=== PATIENT | male | born 1970 | race Caucasian/White ===

== ENCOUNTER 2021-07-20 23:08 | Emergency (ER) | payer OTHER, SELFPAY ==
[2021-07-20 23:12] VITALS: BP 141/96; PULSE 64; RESP 18; TEMP 36.5; O2SAT 98
--- NOTE | 2021-07-20 23:33 | ED.GENADUL_ITS ---
Discharge Plan Disposition Patient Disposition: HOME Condition: Stable Discharge Details Clinical Impression: Hives Primary Care Provider: None,None ED Provider: Jacky Cooney Home Meds and New Rx's Prescriptions: New prednisone 20 mg tablet See Rx Instructions .ROUTE .COMPLEX Qty: 13 RF: 0 Continued cephalexin 500 mg capsule 500 mg PO QID Qty: 28 RF: 0 Discontinued prednisone 20 mg tablet 40 mg PO DAILY Qty: 10 RF: 0 Discharge Instructions Instructions: Urticaria (ED) Additional Instructions: you can use benadryl as needed for itching follow dosing instructions on packaging if you develop difficulty breathing, chest pain, abdomen pain, nausea/vomit or feel more ill return to the emergency department Medical Decision Making 50 yo male who was stung by yellow jackets and developed hives and started p rednisone and cephalexin by urgent care 5 days ago, comes in after he had been doing well and then developed recurrent itching hives on lower obliques. He denies gi or respiratory symptoms. He took benadryl tonight and his rash improved though still has very faint hives on lower obliques, not warm to touch or tender. He is speaking in full sentences on exam in no distress and appears well. Suspect continued allergy response, no indication of anaphylaxis. Will have him start steroids again this time with a taper and continue prn benadryl. Advised to return for new or worsening symptoms Differential Diagnosis Differential Diagnosis: hives, allergic reaction HPI General Mode of arrival: ambulatory . Date/Time Provider Initiated Documentation: 07/20/21 23:17 . Limitations to Documentation: no limitations . Information obtained by: patient . History of Present Illness 50 year old M presents to the emergency department with the chief complaint of rash, described as moderate, Patient started experiencing this day(s) (5) and it has been constant. No exacerbating factors reported . Patient notes no other symptoms.. Patient did receive the following treatments prior to arrival, other (benadryl) Related Data Home Medications Medication Instructions Recorded Confirmed cephalexin 500 mg capsule 500 mg PO QID #28 cap 07/15/21 07/15/21 prednisone See Rx Instructions .ROUTE 07/20/21 .COMPLEX #13 tab Previous Rx's Medication Instructions Recorded cephalexin 500 mg capsule 500 mg PO QID #28 cap 07/15/21 prednisone See Rx Instructions .ROUTE 07/20/21 .COMPLEX #13 tab Allergies Allergy/AdvReac Type Severity Reaction Status Date / Time morphine AdvReac Intermediate Skin Rash Verified 07/15/21 12:27 environmental Allergy Mild Uncoded 07/15/21 12:27 General Stated Complaint: RashLesion NISA: 4 Review of Systems All systems reviewed & are unremarkable except as noted in HPI and below Constitutional Constitutional: Denies chills, Denies fever(s) and Denies weakness Cardiovascular Cardiovascular: Denies chest pain and Denies dyspnea Respiratory Respiratory: Denies cough and Denies dyspnea Gastrointestinal Gastrointestinal: Denies abdominal pain, Denies nausea and Denies vomiting Musculoskeletal Musculoskeletal: Denies joint swelling Neurologic Neurologic: Denies weakness Psychiatric Psychiatric: Denies depression PFSH Social History Smoking/Tobacco Use Status: Never Smoking risk assessment performed?: Yes Alcohol Intake: current Alcohol Intake frequency: a few times a month Drug use: Occasionally Substance use type: marijuana Do you feel safe at home: Yes Do you feel safe in your relationship?: Yes Exam Const General: no acute distress Orientation: alert HENMT Head: normal to inspection Ears: external ears normal General nose exam: external nose normal Mouth: moist mucous membranes Eyes General: appearance normal, both eyes and all related structures Neck Neck: normal visual inspection Resp Effort & Inspection: normal respiratory effort and able to speak in complete sentences Cardio Rate: regular rate Skin General skin exam: elasticity normal Neuro General: patient alert and patient oriented x3 Extrem General: normal to inspection Psych Mental Status: mental status grossly normal Course Vital Signs Vital signs: Vital Signs Temperature 36.5 C 07/20/21 23:12 Pulse 64 07/20/21 23:12 Respiratory Rate 18 07/20/21 23:12 Blood Pressure 141/96 H 07/20/21 23:12 Pulse Oximetry 98 07/20/21 23:12 Temperature 36.5 C 07/20/21 23:12 Temperature Source Temporal Artery Scan 07/20/21 23:12 Pulse 64 07/20/21 23:12 Respiratory Rate 18 07/20/21 23:12 Respiratory Effort Non-Labored 07/20/21 23:15 Blood Pressure 141/96 H 07/20/21 23:12 Blood Pressure Position Sitting 07/20/21 23:12 Pulse Oximetry 98 07/20/21 23:12 Oxygen Delivery Method Room Air 07/20/21 23:12 Oxygen Flow Rate 0 07/20/21 23:12 Pain Level 3 07/20/21 23:12
[2021-07-20] MEDS: predniSONE 20 MG TAB 40 MG PO (23:47)
== END 2021-07-20 23:48 | disposition home or self-care (01) ==
PROVIDERS: Emergency Provider Emergency Medicine
DX: T63.461A Toxic effect of venom of wasps, accidental (unintentional), initial encounter (principal); L50.0 Allergic urticaria
CPT/HCPCS: 99283; J7512

== ENCOUNTER 2021-10-19 02:34 | Outpatient (CLI) | payer OTHER, SELFPAY ==
[2021-10-19 14:59] LABS: ALT 31 U/L (16-63); AST 26 U/L (15-37); Alkaline Phosphatase 87 U/L (46-116); BUN 15 mg/dL (7-18); Bilirubin, Total 0.6 mg/dL (0.2-1.0); CO2 26.2 mmol/L (21.0-32.0); CREATININE 0.9 mg/dL (0.70-1.30); Calcium 9.1 mg/dL (8.5-10.1); Calculated LDL 165 mg/dL (<100); Cholesterol 241 mg/dL (<200); Glucose 90 mg/dL (74-106); HDL Cholesterol 64 mg/dL (40-60); Total Protein 7.1 g/dL (6.4-8.2); Triglyceride 64 mg/dL (<150)
[2021-10-19 15:25] LABS: Anion Gap 10.8 mmol/L (3-11); Chloride 103 mmol/L (98-107); Potassium 4.4 mmol/L (3.5-5.1); Sodium 140 mmol/L (136-145)
== END 2021-10-19 02:35 | disposition home or self-care (01) ==
LOC: LBO 02:34
PROVIDERS: PCP Family Medicine; Visit Provider Family Medicine
DX: R53.83 Other fatigue (principal); Z13.220 Encounter for screening for lipoid disorders
CPT/HCPCS: 36415; 80053; 80061

== ENCOUNTER 2022-02-02 16:04 | Outpatient (CLI) | payer OTHER, SELFPAY ==
--- NOTE | 2022-02-02 10:15 | DI.RAD_ITS ---
Exam(s) XR ELBOW LT COMPLETE EXAM: XR ELBOW LT COMPLETE CLINICAL HISTORY: pain, s/p fall, overuse, lt elbow pain, M25.522. TECHNIQUE: 2D digital imaging was performed. Four views COMPARISON: No exams were available for comparison FINDINGS: BONES: No acute fracture is present. No bony destructive lesion is seen. JOINTS: The elbow is normally aligned. No joint effusion is seen. SOFT TISSUE: Normal. IMPRESSION: Unremarkable radiographs of the left elbow. DATA REPOSITORY: RADIATION DOSE DELIVERED:
== END 2022-02-02 16:24 ==
PROVIDERS: PCP Family Medicine; Visit Provider Nurse Practitioner
DX: M25.522 Pain in left elbow (principal)
CPT/HCPCS: 73080

== ENCOUNTER 2022-06-14 20:45 | Emergency (ER) | payer OTHER, SELFPAY ==
[2022-06-14 20:50] VITALS: BP 115/79; PULSE 77; RESP 18; TEMP 36.3; O2SAT 99
--- NOTE | 2022-06-14 21:04 | ED.GENADUL_ITS ---
Discharge Plan Disposition Patient Disposition: STILL A PATIENT Discharge Details Chief Complaint: Allergic Primary Care Provider: Elver Chavira ED Provider: Asa Pandya Home Meds and New Rx's Prescriptions: No Action ibuprofen 200 mg tablet 600 mg PO Q6H PRN Excedrin Migraine 250-250-65 mg tablet 2 tab PO ONCE PRN Medical Decision Making 51-year-old male presents after being stung multiple times on the arms and hands bilaterally by bees. Pain and swelling to bilateral upper extremities, patient does have sensation of lip tingling and chest tightness. Was given epinephrine 0.3 mg IM as well as methylprednisolone 125 IV as well as famotidine 20 IV, patient took Benadryl before arrival. Probably secretions lungs clear bilaterally hemodynamically stable. No nausea or vomiting. Will observe patient for 4 to 6 hours. Patient having pain in his arms was dosed Toradol also having some persistent chest discomfort and anxiety ordered Ativan 1 mg IV. Have ordered EKG given chest tightness. HPI General Date/Time Provider Initiated Documentation: 06/14/22 20:51 . HPI Narrative: 51-year-old male presents after being stung by multiple bees while working in the yard, stings to his arms and hands, endorses some chest tightness and itching and welts as well as tingling in his lips Related Data Home Medications Medication Instructions Recorded Confirmed rxrnvst-lhcgdcrrqcpqt-xsoxozun 250 2 tab PO ONCE PRN 10/12/21 06/14/22 mg-250 mg-65 mg tablet (Excedrin Migraine) ibuprofen 200 mg tablet 600 mg PO Q6H PRN 10/12/21 06/14/22 Allergies Allergy/AdvReac Type Severity Reaction Status Date / Time morphine AdvReac Intermediate Skin Rash Verified 06/14/22 20:52 yellow jacket stings Allergy Intermediate welts and Uncoded 06/14/22 20:52 needed steroids environmental Allergy Mild Uncoded 06/14/22 20:52 General Stated Complaint: Allergic NISA: 2 Review of Systems Narrative: Review of Systems Constitutional: negative Eyes: negative ENT: Lip tingling Cardiovascular: negative Respiratory: Chest tightness Gastrointestinal: negative : negative Musculoskeletal: negative Skin: Hives Neurologic: negative Psych: negative PFSH All Active Problems (Updated 02/11/22 @ 14:52 by Yaritza Parker RN) Lateral epicondylitis, left elbow (Acute) 02/09/22 [place] note Restless legs syndrome (Acute) Snoring (Acute) Factor V Leiden (Acute) Bridges hemangioma (Acute) Hives (Acute) Surgical History (Updated 10/21/21 @ 11:13 by Mahnaz Hyman) History of vasectomy Family History (Updated 10/21/21 @ 11:15 by Mahnaz Hyman) Mother Breast cancer Maternal Grandfather Cancer esophageal Social History (Updated 10/12/21 @ 08:27 by Carrie Wheeler LPN) Smoking/Tobacco Use Status: Never Smoking risk assessment performed?: Yes Alcohol Intake: current Alcohol Intake frequency: a few times a month Drug use: Occasionally Substance use type: marijuana Household members: other Details: roomates Housing: house Number of Children: 1 Communication Needs: Corrective Lenses 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 [employer] What is your relationship status?: How often do you talk on the phone with friends or family?: three or more times per week Panel score (0-1 are the most socially isolated patients): 1 Frequency: other 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 Seatbelt use: always Drive intox or ride w/intox customer service driver: No Working smoke detector in home: Yes Fire extinguisher in home: Yes Carbon monox detector in home: Yes Do you feel safe at home: Yes Do you feel safe in your relationship?: Yes Exam Narrative Exam Narrative: Physical Examination General: alert, awake, cooperative, moderately uncomfortable HEENT: normocephalic, atraumatic; PERRL, EOM intact, conjunctiva normal; no nasal discharge; moist mucous membranes, oral and pharyngeal mucosa normal, tolerating secretions Neck: supple, trachea midline; full ROM Chest: normal to inspection Respiratory: normal respiratory effort, speaking in full sentences, clear to auscultation, no wheezing, rales or rhonchi Cardiac: regular rate, regular rhythm, S1S2 intact, no murmurs rubs or gallops GI: abdomen soft, non-tender, non-distended; no palpable mass or hepatosplenomegaly Skin: Multiple raised urticaria to hands and arms bilaterally Neuro: AAOx3, normal speech, moving all extremities Course Vital Signs Vital signs: Vital Signs Temperature 36.3 C L 06/14/22 20:50 Pulse 77 06/14/22 20:50 Respiratory Rate 18 06/14/22 20:50 Blood Pressure 115/79 06/14/22 20:50 Pulse Oximetry 99 06/14/22 20:50 Temperature 36.3 C L 06/14/22 20:50 Pulse 77 06/14/22 20:50 Respiratory Rate 18 06/14/22 20:50 Respiratory Effort 06/14/22 20:52 Respiratory Pattern Normal 06/14/22 20:52 Blood Pressure 115/79 06/14/22 20:50 Pulse Oximetry 99 06/14/22 20:50 Pain Level 4 06/14/22 20:50
[2022-06-14] MEDS: Ondansetron 4 MG/2 ML VIAL IVP (21:09)
[2022-06-14] MEDS: Famotidine 20 MG/2 ML VIAL IVP (21:09)
[2022-06-14] MEDS: methylPREDNISolone SUCC 125 MG VIAL IVP (21:09)
[2022-06-14] MEDS: EPINEPHrine 0.3 MG KIT IM (21:10)
[2022-06-14] MEDS: Normal Saline 1,000 ML 1000 ML IV (21:10)
[2022-06-14 21:27] LABS: Abs Immature Grans 0.02 10^3/uL (0.0-0.06); Absolute Basophil Count 0.04 10^3/uL (0.0-0.2); Absolute Eosinophil Count 0.05 10^3/uL (0.0-0.7); Absolute Lymphocyte Count 2.91 10^3/uL (1.2-3.4); Absolute Monocyte Count 0.35 10^3/uL (0.1-0.8); Absolute Neutrophil Count 2.16 10^3/uL (1.2-6.7); Basophils % 0.7; Eosinophils % 0.9; HCT 49.1 % (40.0-50.0); HGB 16.6 g/dL (13.5-17.5); Immature Grans % 0.4; Lymphocytes % 52.6; MCH 31.5 pg (27.0-33.0); MCHC 33.8 % (32.0-36.0); MCV 93 fL (80-95); Monocytes % 6.3; Neutrophils % 39.1; Platelet Count 299 10^3/uL (130-400); RBC 5.27 10^6/uL (4.36-5.78); RDW 13.8 % (11.8-14.1); RDW-SD 47.7 fL; WBC 5.53 10^3/uL (4.4-10.8)
[2022-06-14 21:53] LABS: ALT 31 U/L (16-63); AST 29 U/L (15-37); Albumin 4.1 g/dL (3.4-5.0); Alkaline Phosphatase 89 U/L (46-116); Anion Gap 11.6 mmol/L (3-11); BUN 22 mg/dL (7-18); Bilirubin, Total 0.4 mg/dL (0.2-1.0); CO2 25.4 mmol/L (21.0-32.0); CREATININE 1.4 mg/dL (0.70-1.30); Calcium 9.5 mg/dL (8.5-10.1); Chloride 103 mmol/L (98-107); Estimated GFR 53.43 (mL/min/1.73m2); Glucose 135 mg/dL (74-106); Potassium 3.6 mmol/L (3.5-5.1); Sodium 140 mmol/L (136-145); Total Protein 7.8 g/dL (6.4-8.2)
--- NOTE | 2022-06-14 22:15 | RT.EKG_ITS ---
APPROVED REPORT Exam: Resting ECG Reason for Exam: chest tightness Patient Location: E HR:71 bpm ECG Measurements Heart Rate 71 AXIS KS 152 P 69 QRSd 91 QRS -1 QT 393 T 12 QTc 428 Conclusion Sinus rhythm...normal P axis, V-rate 60- 99 I have reviewed and interpreted ECG and agree with software generated interpretation. Physician: no stemi
[2022-06-14] MEDS: Ketorolac 15 MG/ML VIAL IVP (23:22)
[2022-06-14] MEDS: LORazepam 20 MG/10 ML VIAL IVP (23:26)
--- NOTE | 2022-06-15 00:59 | ED.PROG_ITS ---
Date of service: 06/15/22 Time of Service: 00:59 Medical Decision Making Patient was signed out to me by Dr. Pepe Acuna. Please refer to his HPI, physical exam, assessment and plan. Patient was stung by multiple hymenoptera, subsequently developed an allergic reaction. He was managed appropriately here in the emergency department. At time of signout we are pending reassessment after prolonged observation period. Patient has been here over 4 hours. He feels very well, rash is nearly completely resolved aside for the site of the stings. Patient shows no signs of airway compromise, anaphylaxis, aortic or other significant abnormality. Patient is notably stable. Vital signs stable. We will give prescription of steroids for home use, recommend Benadryl and loratadine for home. Will give epinephrine to go home with, as well as a prescription for EpiPen's. Discussed red flags for which to return. I have extensively reviewed the treatment plan and discharge instructions with the patient. I have addressed all patient concerns at this time. The patient was made aware of what symptoms to monitor for that would warrant a return to the emergency department. Discussed the plan with the patient, they demonstrate verbal understanding and agreement with our assessment and plan at this time. The documentation in this chart was dictated using [employer] dictation software. Please excuse any dictation errors. Sign Out Sign Out Data: Sign Out Comment: multiple bee stings to arms; chest tightness and lip tingling; given epi, methylpred, famotidine, fluids; observing in ED for 4-6 hrs pending reassessment for dispo Last updated by Asa Pandya MD at 06/14/22 22:36 Discharge Plan Disposition Patient Disposition: HOME Condition: Good Discharge Details Clinical Impression: Allergic reaction Primary Care Provider: Elver Chavira ED Provider: Mono Lora Home Meds and New Rx's Prescriptions: New epinephrine [EpiPen 2-Jabier] 0.3 mg/0.3 mL auto-injector 0.3 mg IM ONCE Qty: 2 0RF Rx Instructions: as a single dose; may repeat once prednisone 50 mg tablet 50 mg PO DAILY Qty: 5 0RF No Action ibuprofen 200 mg tablet 600 mg PO Q6H PRN Excedrin Migraine 250-250-65 mg tablet 2 tab PO ONCE PRN Discharge Instructions Instructions: Epinephrine (By injection), General Allergic Reaction (ED) Additional Instructions: At this time here your allergic reaction has notably improved. The steroid prescription has been sent to your pharmacy on file. As well as an EpiPen for future use. You have been given an EpiPen for home to use as well. Please can you need to take 25 mg of Benadryl for the next 2 to 3 days, as well as 10 mg of loratadine every day. If you notice any worsening of your symptoms, or any new symptoms such as vomiting, diarrhea, fever, chills, shortness of breath, chest pain, numbness, weakness, or fainting , please return immediately to the emergency department for reevaluation. Please follow up with your primary care provider as soon as possible for reassessment and reevaluation. As always, it was a pleasure participating in your medical care today. Referrals: Elver Chavira DO [Primary Care Provider] -
[2022-06-15 01:28] VITALS: BP 138/79; PULSE 81; RESP 16; TEMP 36.6; O2SAT 81
== END 2022-06-15 01:32 | disposition home or self-care (01) ==
LOC: ER 06-15 02:05
PROVIDERS: Emergency Medicine; Emergency Provider Student in an Organized Health Care Education/Training Program; PCP Family Medicine
DX: T63.441A Toxic effect of venom of bees, accidental (unintentional), initial encounter (principal); L50.9 Urticaria, unspecified; R07.89 Other chest pain; R20.2 Paresthesia of skin; Y92.096 Garden or yard of other non-institutional residence as the place of occurrence of the external cause
CPT/HCPCS: 80053; 93005; 96361; 96372; 96374; 96375; 99284; 85025; 93010; J0171; J1885; J2405; J2930; J3490

== ENCOUNTER 2022-07-19 09:43 | Day surgery (SDC) | payer OTHER, SELFPAY ==
--- NOTE | 2022-07-19 04:39 | W.ANESPRE ---
General Info Date of Service Date Performed: 07/19/22 Height: 5 ft 9 in Weight: 87.713 kg Body Mass Index (BMI): 28.5 Surgical Procedure: Operation Date: 07/19/22 12:05 Proposed Procedure Side Surgeon p Colonoscopy Ruthann Ramsey MD Meds Allergies and Home Medications Allergies Allergy/AdvReac Type Severity Reaction Status Date / Time morphine AdvReac Intermediate Skin Rash Verified 07/19/22 10:12 yellow jacket stings Allergy Intermediate welts and Uncoded 07/19/22 10:12 needed steroids environmental Allergy Mild Uncoded 07/19/22 10:12 Home Medication Medication Instructions Recorded rdvertp-vxyhqmaoqffik-mwvtzahq 250 2 tab PO ONCE PRN 10/12/21 mg-250 mg-65 mg tablet (Excedrin Migraine) ibuprofen 200 mg tablet 600 mg PO Q6H PRN 10/12/21 epinephrine 0.3 mg/0.3 mL 0.3 mg (0.3 mL) IM ONCE #2 ea 06/15/22 injection, auto-injector (EpiPen 2-Jabier) bisacodyl 5 mg tablet,delayed 5 mg PO ONCE colonscopy bowel prep 07/09/22 release (Dulcolax (bisacodyl)) #4 tabs polyethylene glycol 3350 17 238 g PO ONCE colonoscopy prep 07/09/22 gram/dose oral powder #238 grams Current Visit Medications: Current Medications Generic Name Dose Route Start Last Admin Trade Name Freq PRN Reason Stop Dose Admin Ringer's Solution 1,000 mls @ 80 mls/hr 07/19/22 06:00 IV 08/15/22 23:59 INFUSION ROBERT IV Miscellaneous Supplies 1 each 07/19/22 06:00 Iv Access IV 08/15/22 23:59 DIRECTED ROBERT Sodium Chloride 0 ml 07/19/22 06:00 Normal Saline Flush 10 Ml Syr IV 08/15/22 23:59 PRN PRN Sodium Chloride 0 ml 07/19/22 06:00 Normal Saline 10 Ml Vial IJ 08/15/22 23:59 DIRECTED PRN Sterile Water 0 ml 07/19/22 06:00 Water,Injection,Sterile 10 Ml Vial IJ 08/15/22 23:59 DIRECTED PRN PFSH Active Problems Active Problems: Problem Status Onset Code Hives L50.9 Bridges hemangioma D18.01 Factor V Leiden D68.51 Snoring R06.83 Restless legs syndrome G25.81 Lateral epicondylitis, left elbow M77.12 Surgical History Surgical History History of vasectomy Hx of sinus surgery 2013 Tobacco Smoking/Tobacco Use Status: Never Alcohol Alcohol Intake: current Alcohol intake frequency: a few times a month Substance Use Substance use: Occasionally Substance use type: marijuana Vital Signs and Lab Results Vital Signs Most Recent Vital Signs in EMR: Temp Pulse Resp BP Pulse Ox 36.6 C 68 18 124/97 H 100 07/19/22 10:10 07/19/22 10:10 07/19/22 10:10 07/19/22 10:10 07/19/22 10:10 Lab Results Blood Type / Crossmatch: No Data to Display Complete Blood Count: No Data to Display Complete Metabolic Panel: No Data to Display Liver Function Panel: No Data to Display Coagulation Panel: No Data to Display Cardiac Panel: No Data to Display Arterial Blood Gas: No Data to Display Venous Blood Gas: No Data to Display Pancreas Panel: No Data to Display Thyroid Panel: No Data to Display Infectious Disease: No Data to Display Blood Cultures: No Data to Display Toxicology Panel: No Data to Display Imaging and Studies Imaging and Studies Study information below may be from another EMR and interpreted by another provider. Please see original notes in EMR for more complete details. EKG Summary: 05/2022: sinus. Anesthesia Assessment and Plan Anesthesia History Personal History: No History of Anesthesia Complications Family History: No Family History of Anesthesia Complications Exercise Tolerance Exercise Tolerance: Metabolic Equivalents>4 Pertinent Negatives Pertinent Negatives: No Symptoms of GERD, No Major Cardiovascular Symptoms or Complaints and No Major Pulmonary Symptoms or Complaints Cardiac & Pulmonary Exam Cardiac Exam: Normal S1/S2 Heart Sounds Pulmonary Exam: Clear Bilateral Breath Sounds Implantable Cardiac Device Does patient have a Pacemaker or an ICD?: No Airway Exam Known Difficult Airway: No Mallampati Class: 1 Mouth Opening: Normal (> 3cm) Thyromental Distance: Greater than 3 cm Neck Range of Motion: Full ROM Neck Circumference: Normal Teeth Condition: Normal Dentition ASA Classification ASA Score: ASA 2 Emergency Case?: No NPO Status NPO Status: NPO Clears >2 hours, Solids >8 hours Anesthesia Plan Resuscitation Status: Full Code Anesthesia Technique: General Anesthesia Airway Planned: Natural Airway Monitors Used: Standard Monitors Preoperative Comments:: 51 yo male for colo. Sig PMHx: factor V, RLS, never smoker, occ EtOH/cannabis.
--- NOTE | 2022-07-19 06:50 | W.COLOREPORT ---
Colonoscopy Report Date of procedure: 07/19/22 Pre-op diagnosis general: Colon Cacer Screening and family hx Post-op diagnosis procedure note: same Procedure: Colonoscopy Surgeon: Ruthann Ramsey Anesthesia Type: General:No Airway Estimated blood loss (mL): 0 Pathology: none sent Complications: None Disposition: same day Indications: The patient? is a pleasant? 51-year-old male who is here to discuss a screening colonoscopy. ? He denies any changes in bowel habits, melena, hematochezia, unintentional weight loss. He does have a? family history of colon cancer in his father.? The procedure and risks were discussed.? The prep was reviewed in detail.? Risks, benefits and complications have been reviewed. Complications include but are not limited to bleeding, pain, perforation, missed small lesion/polyp, sore throat, aspiration and adverse reaction to the medications. Questions were entertained and answered to their satisfaction and they wished to proceed. No guarantees were given or implied. Prep: Miralax/Dulcolax Procedure Start Time: 12:11 Procedure End Time: 12:28 Retraction Time: 6 minutes Findings: Normal colon Procedure Description: After informed consent was obtained the patient was taken to the procedure room and placed in a left decubitous position. Monitors were applied and a time out was done. The patients name, date of , procedure, allergies to medications and metal in their body was reviewed. The patient was then sedated. Once sedated and comfortable a rectal exam was done. External exam was normal. Internal exam revealed a normal sphincter tone and no palpable masses. The prostate felt smooth. The scope was then introduced and retro-flexed. No internal hemorrhoids, polyps or masses were identified on retro-flexion. The scope was then advanced to the cecum without difficulty. The ileocecal vlave and appendiceal orifice were identified. The prep was good. The scope was then slowly retracted over 6 minutes back into the rectum. There were no polyps and no diverticulosis noted. The scope was removed and the patient was woken up and taken back to Same day surgery in stable condition. The patient tolerated the procedure well and there were no immediate complications. Follow up: The patient should follow up in 5 years unless they develop changes in bowel habits or other new gastrointestinal complaints.
--- NOTE | 2022-07-19 06:51 | W.PM.DSUDISC ---
Discharge Plan Disposition Patient Disposition: HOME Condition: Good Discharge Details Reason For Visit: Colonoscopy Attending Provider: Ruthann Ramsey Primary Care Provider: Elver Chavira Home Meds and New Rx's Prescriptions: Continued ibuprofen 200 mg tablet 600 mg PO Q6H PRN Excedrin Migraine 250-250-65 mg tablet 2 tab PO ONCE PRN epinephrine [EpiPen 2-Jabier] 0.3 mg/0.3 mL auto-injector 0.3 mg IM ONCE Qty: 2 0RF Rx Instructions: as a single dose; may repeat once Discontinued polyethylene glycol 3350 17 gram/dose powder 238 g PO ONCE Qty: 238 0RF Rx Instructions: take per colonoscopy instructions bisacodyl [Dulcolax (bisacodyl)] 5 mg tablet,delayed release (DR/EC) 5 mg PO ONCE Qty: 4 0RF Rx Instructions: take per colonoscopy instructions Discharge Instructions Additional Instructions: Findings: normal Follow up: 5 years Please call if you develop: fevers >101.5 Nausea or Vomiting Abdominal pain that is not transient Rectal bleeding that is more then a tbsp A hard abdomen and inability to pass gas DAY SURGERY UNIT POST ENDOSCOPY INSTRUCTIONS Instructions for everyone who is given Anesthesia: For your safety, please do the following for the next 24 Hours: a. Do not drive or operate dangerous equipment b. Do not drink alcohol beverages or use any recreational drugs for the first 24 hours or while taking pain medications. The medications in your body may have a reaction that can be dangerous. c. Do not make any important decisions or sign any important papers 1. Generally there are no restrictions on your activity after a day or so has gone by, but you may feel a bit fatigued for a few days. 2. After you arrive home you may have a light meal and return to a normal diet as you can tolerate it without feeling sick to your stomach. 3. After surgery, you may feel pain or discomfort. This should be only transient, but if it persists please contact your doctor. 4. If there are any questions regarding the findings of your procedure, please feel free to contact your doctor. 6. If you are unable to contact your doctor with a problem, contact the hospital at [phone]. 7. Continue all your regular medications unless directed otherwise. I understand the above instructions and have no questions. Signature of Patient or Responsible Adult Escort Date/Time Name of Responsible Adult Escort Signature of Nurse Date/Time Activity:: Activity as Tolerated Diet:: As Tolerated Discharge Orders Discharge Orders: Discharge Order (Routine); Ordered 07/19/22 Ordered By: Ruthann Ramsey
[2022-07-19 10:10] VITALS: BP 124/97; PULSE 68; RESP 18; TEMP 36.6; O2SAT 100
[2022-07-19] MEDS: Lactated Ringers 1,000 ML 80 ML IV (10:43)
[2022-07-19 11:41] VITALS: BMI 28.5
[2022-07-19 12:29] VITALS: BP 123/83; PULSE 74; RESP 16; TEMP 36.3; O2SAT 95
--- NOTE | 2022-07-19 12:40 | W.ANESPOSTOP ---
Postoperative Evaluation Date, Time and Location Date Performed: 07/19/22 Time Performed: 12:40 Patient Location: Day Surgery Unit Vital Signs Most Recent Imported Vital Signs: Most Recent Vital Signs Temp Pulse Resp BP Pulse Ox 36.3 C L 74 16 123/83 95 07/19/22 12:29 07/19/22 12:29 07/19/22 12:29 07/19/22 12:29 07/19/22 12:29 Pain Score Most Recent Pain Score: Most Recent Pain Score Pain Level 0 07/19/22 12:29 Assessment Mental Status: Awake (Alert & Oriented to Patient Baseline) Airway and Respiratory Function: Patent airway with normal (patient baseline) respiratory exam Cardiovascular Function: Hemodynamically Stable Hydration Status: Adequately Hydrated Nausea & Vomiting: No Nausea or Vomiting Pain: Pt. Denies Any Pain Peripheral Nerve Block: Patient did not receive a nerve block
[2022-07-19 13:02] VITALS: BP 125/82; PULSE 65; RESP 16; TEMP 36.2; O2SAT 97
== END 2022-07-19 14:23 | disposition home or self-care (01) ==
PROVIDERS: PCP Family Medicine; Visit Provider Surgery
PROC: 0DJD8ZZ Inspection of Lower Intestinal Tract, Via Natural or Artificial Opening Endoscopic (ICD-10-PCS; CPT 45378; principal; 2022-07-19 12:00)
DX: Z12.11 Encounter for screening for malignant neoplasm of colon (principal); Z80.0 Family history of malignant neoplasm of digestive organs
CPT/HCPCS: 45378

== ENCOUNTER 2023-05-24 14:24 | Observation (INO) | payer OTHER, SELFPAY ==
[2023-05-24] VITALS (49 sets, daily range): BP systolic 125–151; BP diastolic 81–114; PULSE 63–89; RESP 10–24; TEMP 36.5–36.6; O2SAT 95–100
--- NOTE | 2023-05-24 14:30 | RT.EKG_ITS ---
APPROVED REPORT Exam: Resting ECG Reason for Exam: syncope Patient Location: E HR:56 bpm ECG Measurements Heart Rate 56 AXIS DC 155 P 52 QRSd 96 QRS 29 QT 412 T 24 QTc 398 Conclusion Sinus bradycardia...rate< 60
--- NOTE | 2023-05-24 14:45 | DI.CT_ITS ---
Exam(s) CT CHEST PE CTA EXAM: CT CHEST PE CTA CLINICAL HISTORY: syncope, factor 5 leiden. TECHNIQUE: Imaging Protocol: Axial CT angiography was performed with multi-slice acquisition and mu lti-planar reconstructions as well as axial, coronal and sagittal MIP reconstructions. CONTRAST MATERIAL: Intravenous: Omnipaque 350 Contrast volume:100 ml COMPARISON: No exams were available for comparison FINDINGS: Pulmonary Arteries: No evidence of filling defect to suggest pulmonary emboli. Tracheobronchial tree: Patent where visualized. Mediastinum and Madeleine: No dominant adenopathy or fluid collection. Pulmonary parenchyma: Dependent changes. No consolidation or dominant measurable mass. Pleura: No effusion or pneumothorax. Heart: The heart is not dilated. No coronary artery calcifications are seen. Aorta: Thoracic aorta non-dilated. No aneurysm. No dissection. Upper abdomen: Non-obstructing stone upper pole left kidney. Bones: Unremarkable for age. Tubes, Catheters, and Lines: IMPRESSION: No evidence of pulmonary embolism or other acute abnormality. RADIATION DOSE DELIVERED: 578.18mGy.cm Total DLP DATA REPOSITORY: All CT scans at this facility are submitted to the National Radiology Data Registry (NRDR) Dose Index Registry (DIR) with the [employer] ([employer]). RADIATION OPTIMIZATION: All CT scans at this facility use at least one of these dose optimization te chniques: automated exposure control; mA and/or kV adjustment per patient size (includes targeted exa ms where dose is matched to clinical indication); or iterative reconstruction.
--- NOTE | 2023-05-24 14:45 | DI.CT_ITS ---
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 TECHNIQUE: Imaging Protocol: Axial computed tomography images with coronal and sagittal reformatted images were created and reviewed COMPARISON: No exams were available for comparison FINDINGS: Head CT Ventricles and Extra axial spaces: Normal in size and morphology for the patient's age. Hemorrhage: None. Cerebral parenchyma: Normal. Midline shift: None. Brainstem/Cerebellum: Normal. Calvarium: Normal. Visualized Paranasal sinuses/Mastoids: Minimal mucosal thickening floor left maxillary sinus. Cervical Spine CT BONES: Vertebral body heights are maintained. Alignment is normal. There is no evidence of acute frac ture. Degenerative disc changes and facet degenerative changes are seen . SOFT TISSUES: No paraspinal hematoma. The airway appears intact. No pneumothorax is seen at the lung apices. IMPRESSION: Head CT: No acute abnormality. C-spine CT: Degenerative changes, no acute abnormality. RADIATION DOSE DELIVERED: 1,770.76mGy.cm Total DLP DATA REPOSITORY: All CT scans at this facility are submitted to the National Radiology Data Registry (NRDR) Dose Index Registry (DIR) with the [employer] ([employer]). RADIATION OPTIMIZATION: All CT scans at this facility use at least one of these dose optimization te chniques: automated exposure control; mA and/or kV adjustment per patient size (includes targeted exa ms where dose is matched to clinical indication); or iterative reconstruction.
--- NOTE | 2023-05-24 15:04 | W.ED.GENAD ---
Discharge Plan Disposition Patient Disposition: Admit to [facility] Discharge Details Clinical Impression: Syncope, Acute head trauma, Laceration of scalp, Acute neck pain Admit Date/Time: 05/24/23 19:20 Admit Provider: Navdeep Kenney Attending Provider: Navdeep Kenney Primary Care Provider: Elver Chavira ED Provider: Edmundo Meredith Discharge Data Discharge Date/Time-TO BE ENTERED AT DEPARTURE: 05/24/23 20:32 Medical Decision Making 1500??52-year-old male here with head trauma after syncopal episode that occurred at rest while riding lawnmower. Patient is saturating well in no respiratory distress. Hemodynamically stable. Patient has neck pain and focal midline cervical tenderness. Consider fracture. Patient neurologically intact. Plan to obtain CT of the cervical spine. Unclear etiology for syncopal episode. Concern for potential arrhythmia versus pulmonary embolism given history of factor V Leiden. Plan to obtain CT of the chest. EKG was reviewed and interpreted by me: Please see report, sinus bradycardia 56 bpm. Will anesthetize wound and plan for primary closure. Tetanus up-to-date. -- CT of the chest was interpreted by radiology: No pulmonary embolism identified. CT of the head and cervical spine interpreted by radiology as: No acute intracranial abnormality, no acute findings C5-C6 with mild spinal canal stenosis and degenerative disc changes with mild loss of disc height C5-C6. Thyroid with 11 mm nodule in the inferior lobe of the thyroid gland. Patient continued to have neck pain and midline tenderness despite negative CT. [place] collar was placed and plan to maintain until patient can be reassessed with pain resolution or MRI can be obtained to assess for ligamentous instability/fracture not apparent on CT. Plan to hospitalize for continued diagnostics, cardiac monitoring. I called and spoke with hospitalist on-call, Dr. Kenney, discussed ED presentation and course, he will admit the patient. Care transition at time of admission. Lab Data Lab results reviewed: Yes I reviewed the patient's lab results. Labs: Laboratory Tests Range/Units 05/24/23 05/24/23 15:00 15:00 WBC (4.4-10.8) 10^3/uL 6.20 RBC (4.36-5.78) 10^6/uL 4.74 Hgb (13.5-17.5) g/dL 14.9 Hct (40.0-50.0) % 45.2 MCV (80-95) fL 95 MCH (27.0-33.0) pg 31.4 MCHC (32.0-36.0) % 33.0 RDW (11.8-14.1) % 13.6 Plt Count (130-400) 10^3/uL 265 MPV (8.0-11.0) fL 9.8 Immature Gran % 0.6 Neutrophils % 55.9 Lymphocytes % 34.0 Monocytes % 7.1 Eosinophils % 1.8 Basophils % 0.6 Nucleated RBC % (0.0-0.3) % 0.0 Absolute Neutrophils (1.2-6.7) 10^3/uL 3.46 Absolute Lymphocytes (1.2-3.4) 10^3/uL 2.11 Absolute Monocytes (0.1-0.8) 10^3/uL 0.44 Absolute Eosinophils (0.0-0.7) 10^3/uL 0.11 Absolute Basophils (0.0-0.2) 10^3/uL 0.04 Sodium (136-145) mmol/L 141 Potassium (3.5-5.1) mmol/L 3.8 Chloride (98-107) mmol/L 104 Carbon Dioxide (21.0-32.0) mmol/L 29.5 Anion Gap (3-11) mmol/L 7.5 BUN (7-18) mg/dL 22 H Creatinine (0.70-1.30) mg/dL 1.1 Est GFR (CKD-EPI 2020) (mL/min/1.73m2) 80.77 Glucose (74-106) mg/dL 108 H Calcium (8.5-10.1) mg/dL 9.2 Magnesium (1.8-2.4) mg/dL 1.9 Total Bilirubin (0.2-1.0) mg/dL 0.6 AST (15-37) U/L 20 ALT (16-63) U/L 30 Alkaline Phosphatase (46-116) U/L 92 Troponin I (<or=60) ng/L < 50 Total Protein (6.4-8.2) g/dL 7.8 Albumin (3.4-5.0) g/dL 4.0 HPI General Mode of arrival: ambulatory. Date/Time Provider Initiated Documentation: 05/24/23 14:34. Limitations to Documentation: no limitations. Information obtained by: patient. HPI Narrative: 52-year-old male with history of factor V Leiden, here after syncopal episode with head trauma. Patient notes he was feeling well, he was out working in the heat, riding on his tractor when he lost consciousness. He does not recall any precipitating event. He woke up on the ground next to the tractor having struck his head on a cinder block. Patient's partner notes he was initially confused and then slowly regained consciousness. He denies chest pain or shortness of breath at this time. No abdominal pain. He does have some pain at laceration site top of his scalp and also notes neck pain. Related Data Home Medications Medication Instructions Recorded Confirmed [id number]-kypiuillktxqj-uwzxmeog 250 2 tab PO ONCE PRN 10/12/21 05/24/23 mg-250 mg-65 mg tablet (Excedrin Migraine) ibuprofen 200 mg tablet 600 mg PO Q6H PRN 10/12/21 05/24/23 epinephrine 0.3 mg/0.3 mL 0.3 mg (0.3 mL) IM ONCE #2 ea 06/15/22 05/24/23 injection, auto-injector (EpiPen 2-Jabier) Previous Rx's Medication Instructions Recorded epinephrine 0.3 mg/0.3 mL 0.3 mg (0.3 mL) IM ONCE #2 ea 06/15/22 injection, auto-injector (EpiPen 2-Jabier) Allergies Allergy/AdvReac Type Severity Reaction Status Date / Time morphine AdvReac Intermediate Skin Rash Verified 05/24/23 14:35 yellow jacket stings Allergy Intermediate welts and Uncoded 05/24/23 14:35 needed steroids environmental Allergy Mild Uncoded 05/24/23 14:35 General Stated Complaint: Trauma NISA: 2 Review of Systems All systems reviewed & are unremarkable except as noted in HPI and below Constitutional Constitutional: Denies fever(s) Cardiovascular Cardiovascular: Denies chest pain PFSH All Active Problems (Updated 05/25/23 @ 12:46 by Edmundo Meredith MD) Syncope (Chronic) Acute head trauma (Acute) Laceration of scalp (Acute) Acute neck pain (Acute) Cervical strain (Acute) Syncope and collapse (Acute) Family history of prostate cancer in father (Chronic) Likely non-metastatic, diagnosed in his 70s Normal colonoscopy (Acute) Hives (Acute) Bridges hemangioma (Acute) Factor V Leiden (Acute) Snoring (Acute) Restless legs syndrome (Acute) Lateral epicondylitis, left elbow (Acute) 02/09/22 [place] note Surgical History History of colonoscopy (~06/2022) History of vasectomy Hx of sinus surgery 2012 Family History Mother Breast cancer Maternal Grandfather Cancer esophageal Father Prostate cancer Social History Smoking/Tobacco Use Status: Never Smoking risk assessment performed?: Yes Alcohol Intake: current Alcohol Intake frequency: a few times a month Drug use: Occasionally Substance use type: marijuana Adopted: No Caregiver/Support person: No Foster care: No Household members: friend(s) and other Details: roomates Housing: house Number of Children: 1 number of grandchildren: 0 Communication Needs: None and Corrective Lenses Education Level: college Details: Bachelor's degree Do you need help understanding health information?: Rarely 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 Pets and animals: Yes (1) Pets and animals: dog(s) Sexually active: No Do you think of yourself as: straight/heterosexual Current gender identity: male What is your relationship status?: How often do you talk on the phone with friends or family?: once per week How often do you get together with friends or relatives?: never Do you belong to any clubs or organized social groups?: yes Panel score (0-1 are the most socially isolated patients): 1 What type of physical activity do you participate in: other 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 Duration: > 90 minutes/day Frequency: daily Special usha needs: No Seatbelt use: always Helmet use: Yes Drive intox or ride w/intox four horse hitch driver: No Working smoke detector in home: Yes Fire extinguisher in home: Yes Carbon monox detector in home: Yes Do you feel safe at home: Yes Do you feel safe in your relationship?: Yes Exam Const General: cooperative and no acute distress HENMT Head: laceration (midline scalp, no active bleeding) Mouth: moist mucous membranes Eyes Conjunctivae: normal conjunctivae Sclera: normal sclerae EOM: EOM intact bilaterally Neck Neck: trachea midline and supple Resp Auscultation: clear to auscultation bilaterally, no rales, no rhonchi and no wheezes Cardio Rate: regular rate and not tachycardic Rhythm: regular rhythm GI Palpation: soft, not firm, no guarding, no masses, not rigid and nontender Back/Spine/Pelvis Cervical Spine: collar present and cervical spinal tenderness (lower) Skin General skin exam: no rashes or lesions noted Neuro General: patient alert, patient awake, patient oriented x3 and tone normal Cognition: normal cognition Speech: speech normal Motor: strength 5/5 throughout Sensory Exam: no sensory deficits noted Extrem General: no edema Psych Appearance: grossly normal Mental Status: mental status grossly normal Course Vital Signs Vital signs: Vital Signs Temperature 36.5 C 05/24/23 14:25 Pulse 67 05/24/23 14:25 Respiratory Rate 16 05/24/23 14:25 Blood Pressure 135/104 H 05/24/23 14:25 Pulse Oximetry 99 05/24/23 14:25 Temperature 36.5 C 05/24/23 14:25 Temperature Source Skin 05/24/23 14:25 Pulse 67 05/24/23 14:25 Respiratory Rate 16 05/24/23 14:25 Respiratory Effort Normal 05/24/23 14:46 Respiratory Depth Normal 05/24/23 14:46 Respiratory Pattern Normal 05/24/23 14:46 Blood Pressure 135/104 H 05/24/23 14:25 Blood Pressure Position Sitting 05/24/23 14:25 Pulse Oximetry 99 05/24/23 14:25 Oxygen Delivery Method Room Air 05/24/23 14:25 Oxygen Flow Rate 0 05/24/23 14:25 Procedures Laceration Laceration 1: Site: scalp Size (cm): 2 Description: stellate Depth: simple, single layer Local Anesthetic: other anesthetic (LET) Pre-repair: wound explored, irrigated extensively and deep structures intact Skin layer closed with: other (alejandro) Number of sutures: 2
[2023-05-24 15:17] LABS: Abs Immature Grans 0.04 10^3/uL (0.0-0.06); Absolute Basophil Count 0.04 10^3/uL (0.0-0.2); Absolute Eosinophil Count 0.11 10^3/uL (0.0-0.7); Absolute Lymphocyte Count 2.11 10^3/uL (1.2-3.4); Absolute Monocyte Count 0.44 10^3/uL (0.1-0.8); Absolute Neutrophil Count 3.46 10^3/uL (1.2-6.7); Basophils % 0.6; Eosinophils % 1.8; HCT 45.2 % (40.0-50.0); HGB 14.9 g/dL (13.5-17.5); Immature Grans % 0.6; MCH 31.4 pg (27.0-33.0); MCV 95 fL (80-95); MPV 9.8 fL (8.0-11.0); Monocytes % 7.1; Neutrophils % 55.9; Platelet Count 265 10^3/uL (130-400); RBC 4.74 10^6/uL (4.36-5.78); RDW 13.6 % (11.8-14.1); RDW-SD 48.2 fL
[2023-05-24 15:36] LABS: ALT 30 U/L (16-63); AST 20 U/L (15-37); Alkaline Phosphatase 92 U/L (46-116); Anion Gap 7.5 mmol/L (3-11); BUN 22 mg/dL (7-18); Bilirubin, Total 0.6 mg/dL (0.2-1.0); CO2 29.5 mmol/L (21.0-32.0); CREATININE 1.1 mg/dL (0.70-1.30); Calcium 9.2 mg/dL (8.5-10.1); Chloride 104 mmol/L (98-107); Estimated GFR 80.77 (mL/min/1.73m2); Glucose 108 mg/dL (74-106); Magnesium 1.9 mg/dL (1.8-2.4); Potassium 3.8 mmol/L (3.5-5.1); Sodium 141 mmol/L (136-145); Total Protein 7.8 g/dL (6.4-8.2); Troponin I < 50 ng/L (<or=60)
[2023-05-24] MEDS: Lidocaine/Epinephri/Tetracaine Topical Gel 3 ML TP (15:45)
[2023-05-24] MEDS: Omnipaque 350 MG/ML 100 ML BTL IJ (16:36)
[2023-05-24] MEDS: Normal Saline - Diluent 50 ML VIAL IJ (16:36)
[2023-05-24] MEDS: Normal Saline Flush 10 ML SYR IVP (16:36)
--- NOTE | 2023-05-24 16:59 | DI.VRAD_ITS ---
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 Radiation optimization: All CT scans at this facility use at least one of these dose optimization techniques: automated exposure control; mA and/or kV adjustment per patient size (includes targeted exams where dose is matched to clinical indication); or iterative reconstruction. COMPARISON: No relevant prior studies available. FINDINGS: Brain: Normal. No hemorrhage. Unremarkable white matter. No mass effect. Cerebral ventricles: No ventriculomegaly. Paranasal sinuses: There is mucous in his cyst or polyp in the left maxillary sinus. Mastoid air cells: Visualized mastoid air cells are well aerated. Pharynx: There are calcified tonsilliths within the tonsils. Bones/joints: Unremarkable. No acute fracture. Soft tissues: Unremarkable. IMPRESSION: No acute intracranial abnormality. 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 Radiation optimization: All CT scans at this facility use at least one of these dose optimization techniques: automated exposure control; mA and/or kV adjustment per patient size (includes targeted exams where dose is matched to clinical indication); or iterative reconstruction. COMPARISON: No relevant prior studies available. FINDINGS: Bones/joints: Mild dextroscoliosis. No acute fracture. Normal alignment. Disc degenerative changes with mild loss of disc height at C5-C6. Mild posterior osteophyte disc complex at C5-C6 with mild spinal canal stenosis. No critical neural foraminal narrowing. Lungs: Lung apices are normal. Thyroid: 11 mm nodule in the inferior left lobe of the thyroid gland. Soft tissues: Unremarkable. IMPRESSION: No acute findings. Dictated and Authenticated by: Kenan Jason MD. Ordering:CITLALI Wyatt MD
--- NOTE | 2023-05-24 17:23 | DI.VRAD_ITS ---
PROCEDURE INFORMATION: Exam: CTA Chest With Contrast Exam date and time: 05/24/2023 4:17 PM Age: 52 years old Clinical indication: Other: Syncope, factor 5 leiden TECHNIQUE: Imaging protocol: Computed tomographic angiography of the chest with contrast. Exam focused on the arteries. 3D rendering (Not supervised by radiologist): MIP and/or 3D reconstructed images were created by the technologist. Radiation optimization: All CT scans at this facility use at least one of these dose optimization techniques: automated exposure control; mA and/or kV adjustment per patient size (includes targeted exams where dose is matched to clinical indication); or iterative reconstruction. Contrast material: OMNIPAQUE 350; Contrast volume: 100 ml; Contrast route: INTRAVENOUS (IV); COMPARISON: CT HEAD CERVICAL SPINE WO 05/24/2023 4:07 PM FINDINGS: Pulmonary arteries: Normal. No pulmonary emboli. Aorta: Unremarkable. No aortic aneurysm. No aortic dissection. Lungs: Unremarkable. No consolidation. No masses. Pleural spaces: Unremarkable. No pneumothorax. No pleural effusion. Heart: Unremarkable. No cardiomegaly. No pericardial effusion. Coronary arteries: No coronary artery calcification. Lymph nodes: Unremarkable. No enlarged lymph nodes. Bones/joints: Unremarkable. No acute fracture. Soft tissues: Unremarkable. IMPRESSION: No pulmonary embolism identified. Dictated and Authenticated by: Navdeep Hernandez MD. Ordering:CITLALI Wyatt MD
[2023-05-24] MEDS: ACETAMINOPHEN 1,000 MG/100 ML BTL 400 MG IVPB (18:30)
--- NOTE | 2023-05-24 19:15 | HPE_ITS ---
Date of service: 05/24/23 Time of Service: 19:15 Assessment and Plan Assessment and plan (1) Syncope and collapse: Start date: 05/24/23 Status: Acute Assessment and plan: This is a 52-year-old gentleman who has had a previous history of seizures as a child but none since. He has been generally healthy with episode of feeling a wave come over him and lightheadedness just prior to waking up on the ground outside while he was driving a small tractor. He had head injury with laceration and cervical strain and is in a cervical brace. Because of the unknown cause of his syncopal episode the patient will be observed overnight with telemetry and trending troponins. Also MRI of the brain and cervical spine will be obtained in the morning. He will remain in the hard cervical brace. He does not have any evidence of acute thromboembolic event causing cardiac decompensation with a history of factor Leiden deficiency but CT of the chest was negative for PE. (2) Cervical strain: Start date: 05/24/23 Status: Acute Assessment and plan: Patient had neck strain with his fall with no memory of how he fell. He did appear to fall mostly over his head and neck and shoulder area by his injuries. CT of the cervical spine was negative but MRI will be obtained. Because of his head injury he will also have an MRI of the brain. PT should evaluate for rehabilitation and if safe his cervical spine brace will be removed earlier than the usual 48 hours to prompt recovery. History of Present Illness History of Present Illness Chief Complaint: Syncope falling from fracture with head injury and neck injury. Narrative: This is a 52-year-old male patient who was mowing his lawn with a riding small tractor when he began to have a wave of dizziness come over him and he awakened on the ground having hit his head on a cinder block and injured his left shoulder and neck. He did not have any incontinence of urine or stool and did not bite his tongue. He has had a history of seizures when he was younger being on phenobarbital and Dilantin which was stopped before the age of 10. He generally is healthy and has had no previous similar episodes in his adult life. He is slightly overweight but this is stable. He denies any significant headache other than his neck pain and back pain from his trauma. In the ED he was evaluated and had a laceration of his scalp repaired and had a CT scan of his head and neck with no obvious fractures or injuries. He did have bruising over the left shoulder but no other findings other than the laceration. He was placed in a neck brace because of his cervical tenderness despite the negative imaging and was admitted for observation. He did have bradycardia on his EKG and has had no previous cardiac history. He denies any previous dysrhythmias. He is generally healthy. He is a full code. Review of Systems Narrative: 13 point review of systems otherwise unrevealing or stable. PFS All Active Problems Cervical strain (Acute) Syncope and collapse (Acute) Family history of prostate cancer in father (Chronic) Likely non-metastatic, diagnosed in his 70s Normal colonoscopy (Acute) Hives (Acute) Bridges hemangioma (Acute) Factor V Leiden (Acute) Snoring (Acute) Restless legs syndrome (Acute) Lateral epicondylitis, left elbow (Acute) 02/09/22 [facility] note Surgical History History of colonoscopy (~06/2022) History of vasectomy Hx of sinus surgery 2012 Family History Mother Breast cancer Maternal Grandfather Cancer esophageal Father Prostate cancer Social History Smoking/Tobacco Use Status: Never Smoking risk assessment performed?: Yes Alcohol Intake: current Alcohol Intake frequency: a few times a month Drug use: Occasionally Substance use type: marijuana Adopted: No Caregiver/Support person: No Foster care: No Household members: friend(s) and other Details: roomates Housing: house Number of Children: 1 number of grandchildren: 0 Communication Needs: None and Corrective Lenses Education Level: college Details: Bachelor's degree Do you need help understanding health information?: Rarely 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 Pets and animals: Yes (1) Pets and animals: dog(s) Sexually active: No Do you think of yourself as: straight/heterosexual Current gender identity: male What is your relationship status?: How often do you talk on the phone with friends or family?: once per week How often do you get together with friends or relatives?: never Do you belong to any clubs or organized social groups?: yes Panel score (0-1 are the most socially isolated patients): 1 What type of physical activity do you participate in: other 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 Duration: > 90 minutes/day Frequency: daily Special usha needs: No Seatbelt use: always Helmet use: Yes Drive intox or ride w/intox roll off driver: No Working smoke detector in home: Yes Fire extinguisher in home: Yes Carbon monox detector in home: Yes Do you feel safe at home: Yes Do you feel safe in your relationship?: Yes Meds Allergies and Home Medications Allergies Allergy/AdvReac Type Severity Reaction Status Date / Time morphine AdvReac Intermediate Skin Rash Verified 05/24/23 14:35 yellow jacket stings Allergy Intermediate welts and Uncoded 05/24/23 14:35 needed steroids environmental Allergy Mild Uncoded 05/24/23 14:35 Home Medications Medication Instructions Recorded Confirmed Type wfycelo-[id number]-[id number] 250 2 tab PO ONCE PRN 10/12/21 05/24/23 History mg-250 mg-65 mg tablet (Excedrin Migraine) ibuprofen 200 mg tablet 600 mg PO Q6H PRN 10/12/21 05/24/23 History epinephrine 0.3 mg/0.3 mL 0.3 mg (0.3 mL) IM ONCE #2 ea 06/15/22 05/24/23 Rx injection, auto-injector (EpiPen 2-Jabier) Exam Narrative Exam Narrative: General: Patient appears slightly older than stated age, he is wearing a neck br lilliana and slightly somnolent having been awakened for exam. He is alert and oriented x3. His moderate distress from his head injury and neck pain with a neck brace in place. HEENT: Normocephalic but traumatic with laceration over his scalp on the top of the head, face with slightly coarsened features. Eyes with pupils equal and reactive light symmetrically, extraocular movement intact and sclera anicteric. Oropharynx with moist Koza and fair dentition. Neck: In neck brace and not examined. Reported tenderness to palpation of the cervical spine after CT of the cervical spine revealed no fractures. There is decreased range of motion with brace on. Back: Stooped posture without CVA tenderness. Some bruising over the left upper shoulder area. Lungs: Fair aeration clear to auscultation and percussion with poor Pittore effort. Heart: Regular rate and rhythm with no murmurs gallops appreciated. Abdomen: Obese contour, soft and nontender to palpation with no palpable hepatosplenomegaly. Bowel sounds positive all quadrants. Genitalia/rectal: Exam deferred. Skin: Bruising over left back and laceration over scalp otherwise normal color, warm and dry. Normal turgor. Extremities: Without clubbing, cyanosis or pitting edema. Fair range of motion of all joints. Neuro: Cranial nerves II through XII gross intact, no focalizing motor deficits. No tremor. Psych: Slightly flattened affect with depressed mood possibly secondary to injury and discomfort. No abnormal thought processes. Remote and recent memory grossly intact. Results Imaging Imaging Studies: Exam: CTA Chest With Contrast Exam date and time: 05/24/2023 4:17 PM Age: 52 years old Clinical indication: Other: Syncope, factor 5 leiden TECHNIQUE: Imaging protocol: Computed tomographic angiography of the chest with contrast. Exam focused on the arteries. 3D rendering (Not supervised by radiologist): MIP and/or 3D reconstructed images were created by the technologist. Radiation optimization: All CT scans at this facility use at least one of these dose optimization techniques: automated exposure control; mA and/or kV adjustment per patient size (includes targeted exams where dose is matched to clinical indication); or iterative reconstruction. Contrast material: OMNIPAQUE 350; Contrast volume: 100 ml; Contrast route: INTRAVENOUS (IV);? COMPARISON: CT HEAD CERVICAL SPINE WO 05/24/2023 4:07 PM FINDINGS: Pulmonary arteries: Normal. No pulmonary emboli. Aorta: Unremarkable. No aortic aneurysm. No aortic dissection. Lungs: Unremarkable. No consolidation. No masses. Pleural spaces: Unremarkable. No pneumothorax. No pleural effusion. Heart: Unremarkable. No cardiomegaly. No pericardial effusion. Coronary arteries: No coronary artery calcification. Lymph nodes: Unremarkable. No enlarged lymph nodes. Bones/joints: Unremarkable. No acute fracture. Soft tissues: Unremarkable. IMPRESSION: No pulmonary embolism identified. 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 Radiation optimization: All CT scans at this facility use at least one of these dose optimization techniques: automated exposure control; mA and/or kV adjustment per patient size (includes targeted exams where dose is matched to clinical indication); or iterative reconstruction. COMPARISON: No relevant prior studies available. FINDINGS: Brain: Normal. No hemorrhage. Unremarkable white matter. No mass effect. Cerebral ventricles: No ventriculomegaly. Paranasal sinuses: There is mucous in his cyst or polyp in the left maxillary sinus. Mastoid air cells: Visualized mastoid air cells are well aerated. Pharynx: There are calcified tonsilliths within the tonsils. Bones/joints: Unremarkable. No acute fracture. Soft tissues: Unremarkable. IMPRESSION: No acute intracranial abnormality. 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 Radiation optimization: All CT scans at this facility use at least one of these dose optimization techniques: automated exposure control; mA and/or kV adjustment per patient size (includes targeted exams where dose is matched to clinical indication); or iterative reconstruction. COMPARISON: No relevant prior studies available. FINDINGS: Bones/joints: Mild dextroscoliosis. No acute fracture. Normal alignment. Disc degenerative changes with mild loss of disc height at C5-C6. Mild posterior osteophyte disc complex at C5-C6 with mild spinal canal stenosis. No critical neural foraminal narrowing. Lungs: Lung apices are normal. Thyroid: 11 mm nodule in the inferior left lobe of the thyroid gland. Soft tissues: Unremarkable. IMPRESSION: No acute findings. Labs 05/24/23 15:00 05/24/23 15:00 Labs: Laboratory Results - last 24 hr 05/24/23 05/24/23 15:00 15:00 WBC 6.20 RBC 4.74 Hgb 14.9 Hct 45.2 MCV 95 MCH 31.4 MCHC 33.0 RDW 13.6 Plt Count 265 MPV 9.8 Immature Gran % 0.6 Neutrophils % 55.9 Lymphocytes % 34.0 Monocytes % 7.1 Eosinophils % 1.8 Basophils % 0.6 Nucleated RBC % 0.0 Absolute Neutrophils 3.46 Absolute Lymphocytes 2.11 Absolute Monocytes 0.44 Absolute Eosinophils 0.11 Absolute Basophils 0.04 Sodium 141 Potassium 3.8 Chloride 104 Carbon Dioxide 29.5 Anion Gap 7.5 BUN 22 H Creatinine 1.1 Est GFR (CKD-EPI 2020) 80.77 Glucose 108 H Calcium 9.2 Magnesium 1.9 Total Bilirubin 0.6 AST 20 ALT 30 Alkaline Phosphatase 92 Troponin I < 50 Total Protein 7.8 Albumin 4.0 Last Vital Signs Temp 36.5 C 05/24/23 14:25 Pulse 74 05/24/23 18:30 Resp 15 05/24/23 18:40 BP 151/98 H 05/24/23 18:30 Pulse Ox 96 05/24/23 18:50 Time Spent Time spent with Patient: >75 minutes Time was spent: preparing to see the patient(eg.review tests), obtaining and/or reviewing separately otained hiistory, ordering medications,tests, procedures, referring, communicating with other health campground caretaker, indepentently interpreting results and care coordination
--- NOTE | 2023-05-24 20:22 | NUR.NOTE ---
Nursing Note: Due to point midline C-spine tenderness, aspen caller placed earlier and to be left inplace until further assessment by medical team. Pt given food and drink for comfort. Pt understands next steps of care.
[2023-05-24 20:59] LABS: Troponin I < 50 ng/L (<or=60)
[2023-05-24 21:03] LABS: TSH (W/Ref FT4) 1.66 uIU/mL (0.36-3.74)
[2023-05-24 22:54] LABS: Bilirubin Negative (Negative); Blood Negative (Negative); Clarity Clear (Clear); Glucose Negative (Negative); Ketones Trace mg/dL (Negative); Leukocyte Esterase Negative (Negative); Nitrite Negative (Negative); Urobilinogen 0.2 mg/dL (Up to 0.2); pH 5.5 (5-8)
[2023-05-24] MEDS: Acetaminophen 325 MG TAB PO (23:23)
[2023-05-24] MEDS: Enoxaparin 40 MG/0.4 ML SYR SC (23:23)
[2023-05-25 02:12] VITALS: PULSE 79
[2023-05-25 02:49] VITALS: BP 114/71; PULSE 60; RESP 16; TEMP 36.5; O2SAT 95
[2023-05-25 03:06] LABS: Troponin I < 50 ng/L (<or=60)
[2023-05-25 07:02] LABS: HCT 43.4 % (40.0-50.0); HGB 14.2 g/dL (13.5-17.5); MCH 30.7 pg (27.0-33.0); MCHC 32.7 % (32.0-36.0); MCV 94 fL (80-95); MPV 9.6 fL (8.0-11.0); Platelet Count 246 10^3/uL (130-400); RBC 4.63 10^6/uL (4.36-5.78); RDW 13.8 % (11.8-14.1); RDW-SD 47.4 fL; WBC 5.92 10^3/uL (4.4-10.8)
[2023-05-25 07:21] LABS: ALT 29 U/L (16-63); AST 25 U/L (15-37); Albumin 3.6 g/dL (3.4-5.0); Alkaline Phosphatase 86 U/L (46-116); Anion Gap 8.5 mmol/L (3-11); BUN 17 mg/dL (7-18); Bilirubin, Total 0.6 mg/dL (0.2-1.0); CO2 25.5 mmol/L (21.0-32.0); CREATININE 0.9 mg/dL (0.70-1.30); Calcium 8.8 mg/dL (8.5-10.1); Chloride 105 mmol/L (98-107); Estimated GFR 102.76 (mL/min/1.73m2); Glucose 99 mg/dL (74-106); Potassium 3.7 mmol/L (3.5-5.1); Sodium 139 mmol/L (136-145); Total Protein 7.1 g/dL (6.4-8.2)
[2023-05-25 07:25] LABS: Troponin I < 50 ng/L (<or=60)
[2023-05-25 07:34] VITALS: PULSE 73
--- NOTE | 2023-05-25 08:00 | DI.MRI_ITS ---
Exam(s) MR CERVICAL SPINE WO EXAM: MR CERVICAL SPINE WO CLINICAL HISTORY: Neck pain after trauma TECHNIQUE: Multiplanar multisequence MRI of the cervical spine was performed without intravenous con trast. COMPARISON: CT CT HEAD CERVICAL SPINE WO from 05/24/2023 FINDINGS: BONES: Vertebral body heights are maintained. Alignment is normal. Bone marrow signal intensity is wi thin normal limits. No evidence of fracture. CERVICAL CORD: Craniovertebral junction is unremarkable. The cervical cord is normal size and signal intensity. SOFT TISSUES: Mild edema in posterior soft tissues at the C5-6 level. C2-3: No disc herniation or bulge is identified. No evidence of neural foraminal narrowing. No signi ficant central canal stenosis C3-4: No disc herniation or bulge is identified. No evidence of neural foraminal narrowing. No signif icant central canal stenosis C4-5: No disc herniation or bulge is identified. No evidence of neural foraminal narrowing. No signif icant central canal stenosis C5-6: Mild loss of disc height. Endplate osteophytes and mild disc bulging.Mild right neural foramin al narrowing. No significant central canal stenosis C6-7: Small endplate osteophytes and mild disc bulging. Mild right neural foraminal narrowing. No si gnificant central canal stenosis C7-T1: No disc herniation or bulge is identified. No evidence of neural foraminal narrowing. No signi ficant central canal stenosis IMPRESSION: Mild posterior soft tissue edema in the C5 and C6 levels. No evidence of fracture. Degenerative disc changes causing mild right neural foraminal narrowing at C5-6 and C6-7. No evidence of disc herniation. DATA REPOSITORY:
--- NOTE | 2023-05-25 08:00 | DI.MRI_ITS ---
Exam(s) MR BRAIN WO EXAM: MR BRAIN WO CLINICAL HISTORY: Syncope TECHNIQUE: Multiplanar multisequence MRI of the brain was performed. COMPARISON: CT CT HEAD CERVICAL SPINE WO from 05/24/2023 FINDINGS: VENTRICLES AND EXTRA AXIAL SPACES: Normal in size and morphology for the patient's age. MIDLINE SHIFT: None. CEREBRAL PARENCHYMA: No focus of restricted diffusion to suggest acute infarct. No space-occupying le donavon identified. No high signal lesions in the white matter. HEMORRHAGE: None. BRAINSTEM/CEREBELLUM: Normal. VISUALIZED PARANASAL SINUSES/MASTOIDS: Mild mucosal thickening floor of left maxillary sinus. Vasculature: Normal flow void. PITUITARY GLAND: Unremarkable. ORBITS: Unremarkable. IMPRESSION: Unremarkable MRI of the brain. DATA REPOSITORY:
--- NOTE | 2023-05-25 09:18 | INITIAL_ITS ---
Date of service: 05/25/23 Time of Service: 09:18 Care Management Initial Assmt Initial Assessment REASON FOR HOSPITALIZATION:: Syncope and collapse, Cervical strain PREVIOUS FUNCTIONAL STATUS/SOCIAL/FAMILY SUPPORTS:: Yvon lives in [place] with his friends Zachary and Yari. 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 He has an adult daughter who lives in [place] and does not have any local family. CURRENT FUNCTIONAL STATUS:: Yvon was lying in bed when CM met with him. He is awake and engages in conversation. He had a MRI earlier today and is waiting to find out the results. ADVANCE DIRECTIVES:: None on file Has patient been provided with info about the portal/API?: Yes Did the patient sign up for the portal?: Yes (Prior to admission) CODE STATUS:: Full Code INSURANCE COVERAGE / FINANCIAL ISSUES:: Janesmallikapedro Maciasmichelle Machado CURRENT HOME/COMMUNITY SERVICES/EQUIPMENT:: None PRIMARY CARE PHYSICIAN:: Elver Chavira POTENTIAL DISCHARGE NEEDS:: Discharge plan of care, follow up appointments PATIENT/FAMILY EDUCATION NEEDS:: Review discharge instructions, limitations, medications and plan to follow up with outpatient providers. Discuss ask me three. ANTICIPATED BARRIERS TO DISCHARGE:: None identified at this time. TRANSPORTATION:: Via private vehicle with friends PLAN:: Anticipate, Yvon will discharge home via private vehicle with a friend when medically cleared by provider. He will follow up with outpatient providers and discharge plan of care as prescribed. CM will continue to follow. PFSH All Active Problems (Updated 05/25/23 @ 12:46 by Edmundo Meredith MD) Syncope (Chronic) Acute head trauma (Acute) Laceration of scalp (Acute) Acute neck pain (Acute) Cervical strain (Acute) Syncope and collapse (Acute) Family history of prostate cancer in father (Chronic) Likely non-metastatic, diagnosed in his 70s Normal colonoscopy (Acute) Hives (Acute) Bridges hemangioma (Acute) Factor V Leiden (Acute) Snoring (Acute) Restless legs syndrome (Acute) Lateral epicondylitis, left elbow (Acute) 02/09/22 [facility] note Surgical History History of colonoscopy (~06/2022) History of vasectomy Hx of sinus surgery 2012 Family History Mother Breast cancer Maternal Grandfather Cancer esophageal Father Prostate cancer Social History Smoking/Tobacco Use Status: Never Smoking risk assessment performed?: Yes Alcohol Intake: current Alcohol Intake frequency: a few times a month Drug use: Occasionally Substance use type: marijuana Adopted: No Caregiver/Support person: No Foster care: No Household members: friend(s) and other Details: roomates Housing: house Number of Children: 1 number of grandchildren: 0 Communication Needs: None and Corrective Lenses Education Level: college Details: Bachelor's degree Do you need help understanding health information?: Rarely 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 Pets and animals: Yes (1) Pets and animals: dog(s) Sexually active: No Do you think of yourself as: straight/heterosexual Current gender identity: male What is your relationship status?: How often do you talk on the phone with friends or family?: once per week How often do you get together with friends or relatives?: never Do you belong to any clubs or organized social groups?: yes Panel score (0-1 are the most socially isolated patients): 1 What type of physical activity do you participate in: other 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
[2023-05-25 11:00] VITALS: BP 132/86; PULSE 64; RESP 18; TEMP 36.5; O2SAT 98
[2023-05-25] MEDS: Acetaminophen 325 MG TAB PO (12:18)
--- NOTE | 2023-05-25 14:36 | CHAPLAIN ---
Yvon was resting in bed when I visited. He came to the ED after falling from his riding lawnmower. I explained my role and offered support. Yvon said he is in touch with family okay. He seems to be comfortable being here.
--- NOTE | 2023-05-25 15:02 | W.PM.DS.N ---
Date of service: 05/25/23 Time of Service: 15:02 DS: Diagnosis Discharge Diagnosis (1) Syncope and collapse: Status: Acute Asessment and Plan: Patient presented with an unprovoked episode of syncope. It could have been related to heat exhaustion given the humidity. He admits to not being well-hydrated. 24 hours of heart monitoring did not show any significant arrhythmia. Does not sound like a vagal episode. He has a very remote history of seizure disorder around age 6 or 8 years of age. He has never had any recurrent seizures. His C-spine was cleared. His neck brace was removed. Symptomatic treatment, monitor symptoms, follow-up as needed (2) Cervical strain: Status: Acute Asessment and Plan: Mild cervical strain. C-spine cleared by MRI. Discharge Plan Disposition Patient Disposition: Home Condition: Good Discharge Details Reason For Visit: Syncope Admit Date/Time: 05/24/23 19:20 Admit Provider: Navdeep Kenney Attending Provider: Navdeep Kenney Primary Care Provider: Elver Chavira [facility] Course Hospital Course: 52-year-old male had a syncopal episode about 24 hours ago while riding a lawn tractor. He describes turning his head sharply to the left to look at the trailer behind him he then began feeling dizzy. His next memory is waking up on the ground. He struck a cinderblock when he fell off the tractor and developed a laceration at the crown of his scalp. In the emergency room he had the scalp laceration stapled x2. His vitals were otherwise stable and he was admitted for observation. He was monitored on telemetry over the ensuing 24 hours. He showed no evidence of arrhythmia. While sleeping he did have a pulse rate as low as 49 without symptoms. He went on to have an MRI of his head and neck. The head MRI was negative. The neck MRI showed a mild stenosis at C5-C6. He is discharged to home with plan follow-up with his PCP. Home Meds and New Rx's Prescriptions: No Action ibuprofen 200 mg tablet 600 mg PO Q6H PRN Excedrin Migraine 250-250-65 mg tablet 2 tab PO ONCE PRN epinephrine [EpiPen 2-Jabier] 0.3 mg/0.3 mL auto-injector 0.3 mg IM ONCE Qty: 2 0RF Rx Instructions: as a single dose; may repeat once Discharge Instructions Instructions: Heat Exhaustion (GEN), Syncope (DC) Activity:: Activity as Tolerated Equipment/Supplies:: No Equipment Needed Diet:: As Tolerated Discharge Orders Discharge Orders: Discharge Order (Routine); Ordered 05/25/23 Ordered By: Jacky Crowley DS: Summary Time Spent with Patient providing and/or coordinating discharge services: Greater than 30 minutes Status at Discharge Functional status at discharge: independent ambulation Overall status at discharge: patient is back to baseline Mental Status: mental status grossly normal Speech and Movement: speech and movement normal Mood: congruent mood Affect: normal affect Exam Narrative Exam Narrative: Patient lying in bed calmly in no apparent distress. His neck is notable for diminished upstrokes of both carotids. There is no bruit heard with auscultation. Neurologically there are no focal deficits, gross motor strength in upper and lower extremities appeared normal. Heart sounded regular. Psych Mental Status: mental status grossly normal Speech and Movement: speech and movement normal Mood: congruent mood Affect: normal affect DS: Data Vitals/I&O Vitals and I&O: Vital Signs Temperature 36.5 C 05/25/23 11:00 Temperature Source Tympanic 05/25/23 11:00 Pulse 64 05/25/23 11:00 Pulse Rhythm Regular 05/25/23 07:00 Pulse 79 05/24/23 20:10 Respiratory Rate 18 05/25/23 11:00 Respiratory Effort Normal, Non-Labored 05/25/23 07:00 Respiratory Depth Normal 05/25/23 07:00 Respiratory Pattern Normal 05/25/23 07:00 Blood Pressure 132/86 05/25/23 11:00 Blood Pressure Mean 109 05/24/23 20:00 Blood Pressure Position Sitting 05/24/23 14:25 Pulse Oximetry 98 05/25/23 11:00 Oxygen Delivery Method Room Air 05/25/23 11:00 Oxygen Flow Rate 0 05/25/23 11:00 Pain Level 3 05/25/23 12:18 Intake & Output 05/24/23 05/25/23 05/25/23 23:59 11:59 23:59 Intake Total 100 / 100 480 / 480 Output Total 400 / 400 Balance -300 / -300 480 / 480 Weight 91.2 kg 91.2 kg Intake: IV 100 / 100 Oral 480 / 480 Output: Urine 400 / 400 Other: Urine Color Yellow Urine Appearance Clear Urine Odor Normal Voiding Methods Toilet Data Completed and Pending Completed studies during hospitalization [Text1]: MRI head, MRI neck Labs on day of discharge: Labs from last 24 hours 05/25/23 05/25/23 05/25/23 06:11 06:11 06:11 WBC 5.92 RBC 4.63 Hgb 14.2 Hct 43.4 MCV 94 MCH 30.7 MCHC 32.7 RDW 13.8 Plt Count 246 MPV 9.6 Immature Gran % Neutrophils % Lymphocytes % Monocytes % Eosinophils % Basophils % Nucleated RBC % Absolute Neutrophils Absolute Lymphocytes Absolute Monocytes Absolute Eosinophils Absolute Basophils Sodium 139 Potassium 3.7 Chloride 105 Carbon Dioxide 25.5 Anion Gap 8.5 BUN 17 Creatinine 0.9 Est GFR (CKD-EPI 2020) 102.76 Glucose 99 Calcium 8.8 Magnesium 2.0 Total Bilirubin 0.6 AST 25 ALT 29 Alkaline Phosphatase 86 Troponin I < 50 Total Protein 7.1 Albumin 3.6 TSH Urine Color Urine Clarity Urine pH Ur Specific [place] Urine Protein Urine Ketones Urine Blood Urine Nitrite Urine Bilirubin Urine Urobilinogen Ur Leukocyte Esterase Urine Glucose 05/25/23 05/24/23 05/24/23 02:45 22:30 20:30 WBC RBC Hgb Hct MCV MCH MCHC RDW Plt Count MPV Immature Gran % Neutrophils % Lymphocytes % Monocytes % Eosinophils % Basophils % Nucleated RBC % Absolute Neutrophils Absolute Lymphocytes Absolute Monocytes Absolute Eosinophils Absolute Basophils Sodium Potassium Chloride Carbon Dioxide Anion Gap BUN Creatinine Est GFR (CKD-EPI 2020) Glucose Calcium Magnesium Total Bilirubin AST ALT Alkaline Phosphatase Troponin I < 50 Total Protein Albumin TSH 1.66 Urine Color Yellow Urine Clarity Clear Urine pH 5.5 Ur Specific [place] 1.010 Urine Protein Negative Urine Ketones Trace H Urine Blood Negative Urine Nitrite Negative Urine Bilirubin Negative Urine Urobilinogen 0.2 Ur Leukocyte Esterase Negative Urine Glucose Negative 05/24/23 05/24/23 05/24/23 20:30 15:00 15:00 WBC 6.20 RBC 4.74 Hgb 14.9 Hct 45.2 MCV 95 MCH 31.4 MCHC 33.0 RDW 13.6 Plt Count 265 MPV 9.8 Immature Gran % 0.6 Neutrophils % 55.9 Lymphocytes % 34.0 Monocytes % 7.1 Eosinophils % 1.8 Basophils % 0.6 Nucleated RBC % 0.0 Absolute Neutrophils 3.46 Absolute Lymphocytes 2.11 Absolute Monocytes 0.44 Absolute Eosinophils 0.11 Absolute Basophils 0.04 Sodium 141 Potassium 3.8 Chloride 104 Carbon Dioxide 29.5 Anion Gap 7.5 BUN 22 H Creatinine 1.1 Est GFR (CKD-EPI 2020) 80.77 Glucose 108 H Calcium 9.2 Magnesium 1.9 Total Bilirubin 0.6 AST 20 ALT 30 Alkaline Phosphatase 92 Troponin I < 50 < 50 Total Protein 7.8 Albumin 4.0 TSH Urine Color Urine Clarity Urine pH Ur Specific [place] Urine Protein Urine Ketones Urine Blood Urine Nitrite Urine Bilirubin Urine Urobilinogen Ur Leukocyte Esterase Urine Glucose PFSH All Active Problems (Updated 05/25/23 @ 12:46 by Edmundo Meredith MD) Syncope (Chronic) Acute head trauma (Acute) Laceration of scalp (Acute) Acute neck pain (Acute) Cervical strain (Acute) Syncope and collapse (Acute) Family history of prostate cancer in father (Chronic) Likely non-metastatic, diagnosed in his 70s Normal colonoscopy (Acute) Hives (Acute) Bridges hemangioma (Acute) Factor V Leiden (Acute) Snoring (Acute) Restless legs syndrome (Acute) Lateral epicondylitis, left elbow (Acute) 02/09/22 [facility] Surgical History History of colonoscopy (~06/2022) History of vasectomy Hx of sinus surgery 2012 Family History Mother Breast cancer Maternal Grandfather Cancer esophageal Father Prostate cancer Social History Smoking/Tobacco Use Status: Never Smoking risk assessment performed?: Yes Alcohol Intake: current Alcohol Intake frequency: a few times a month Drug use: Occasionally Substance use type: marijuana Adopted: No Caregiver/Support person: No Foster care: No Household members: friend(s) and other Details: roomates Housing: house Number of Children: 1 number of grandchildren: 0 Communication Needs: None and Corrective Lenses Education Level: college Details: Bachelor's degree Do you need help understanding health information?: Rarely 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 Pets and animals: Yes (1) Pets and animals: dog(s) Sexually active: No Do you think of yourself as: straight/heterosexual Current gender identity: male What is your relationship status?: How often do you talk on the phone with friends or family?: once per week How often do you get together with friends or relatives?: never Do you belong to any clubs or organized social groups?: yes Panel score (0-1 are the most socially isolated patients): 1 What type of physical activity do you participate in: other 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 Duration: > 90 minutes/day Frequency: daily Special usha needs: No Seatbelt use: always Helmet use: Yes Drive intox or ride w/intox auto crane driver: No Working smoke detector in home: Yes Fire extinguisher in home: Yes Carbon monox detector in home: Yes Do you feel safe at home: Yes Do you feel safe in your relationship?: Yes Time Spent with Patient Time Spent with Patient: <45 minutes Time was spent: preparing to see the patient(eg.review tests), obtaining and/or reviewing separately otained hiistory, ordering medications,tests, procedures, referring, communicating with other health family day care provider, indepentently interpreting results and counseling the patient
[2023-05-25 15:35] VITALS: BP 142/93; PULSE 72; RESP 18; TEMP 36.5; O2SAT 97
--- NOTE | 2023-05-25 16:14 | PDOC.CMDIS ---
Date of service: 05/25/23 Time of Service: 16:14 LACE Index Scoring Tool Questions: Length of Stay (in days): 1 Was the patient admitted via the E.D.?: Yes E.D. Visits: 1 Answers: Total Score: 5 Risk of Readmission: Low Risk Care Management Discharge Plan Reason for Hospitalization: Syncope and collapse, Cervical strain Discharge Plan: Yvon is discharged home via private vehicle with a friend. He will follow up with his PCP and his discharge plan of care as instructed. No new services are ordered prior to discharge. Patient/Family Education Needs: Review discharge instructions, limitations and plan to follow up with outpatient providers. Discuss ask me three.
[2023-05-25 16:36] VITALS: PULSE 79
== END 2023-05-25 17:35 | disposition home or self-care (01) ==
LOC: ER 17:49 → MS 20:35
PROVIDERS: Admitting Provider Family Medicine; Emergency Provider Student in an Organized Health Care Education/Training Program; PCP Family Medicine; Visit Provider Family Medicine
DX: R55 Syncope and collapse (principal); S16.1XXA Strain of muscle, fascia and tendon at neck level, initial encounter; D68.51 Activated protein C resistance; S20.222A Contusion of left back wall of thorax, initial encounter; V98.8XXA Other specified transport accidents, initial encounter; S01.01XA Laceration without foreign body of scalp, initial encounter; R06.83 Snoring; G25.81 Restless legs syndrome; F12.90 Cannabis use, unspecified, uncomplicated; E04.1 Nontoxic single thyroid nodule; M50.322 Other cervical disc degeneration at C5-C6 level
CPT/HCPCS: 12001; 36415; 71275; 80053; 85027; 93005; 96365; 99285; J1650; 70450; 70551; 72125; 72141; 81003; 83735; 84443; 84484; 85025; 93010; 99223; 99239; G0378; J0131; J3490

== ENCOUNTER 2024-07-12 02:59 | Outpatient (CLI) | payer OTHER, SELFPAY ==
--- NOTE | 2024-07-12 12:34 | DI.RAD_ITS ---
Exam(s) XR CERVICAL SPINE COMP 4-5V EXAM: XR CERVICAL SPINE COMP 4-5V CLINICAL HISTORY: eval disc spacing, curvature,? bony path,acute neck pain, cervical strain. TECHNIQUE: 2D digital imaging was performed. Five views were performed. COMPARISON: No exams were available for comparison FINDINGS: BONES: No fracture or destructive lesion. Vertebral bodies are unremarkable. Facet degenerative junaid nges present throughout. No significant neural foraminal narrowing. DISKS: Moderate narrowing of the C5-6 and C6-7 disc spaces with endplate osteophytes. The remaining intervertebral disc spaces are maintained. ALIGNMENT: Degenerative straightening of the normal cervical lordosis the odontoid and atlantoaxial a rticulations are normal. SOFT TISSUE: Normal. The lung apices are clear. IMPRESSION: Degenerative changes greatest at C5-6 and C6-7. DATA REPOSITORY: RADIATION DOSE DELIVERED:
--- NOTE | 2024-07-12 12:34 | DI.RAD_ITS ---
Exam(s) XR THORACIC SPINE COMPLETE EXAM: XR THORACIC SPINE COMPLETE CLINICAL HISTORY: eval disc spacing, curvature,? bony path,back pain,m54.9. TECHNIQUE: 2D digital imaging was performed. Three views. COMPARISON: No exams were available for comparison FINDINGS: BONES: There is no fracture or destructive lesion. The vertebral bodies and posterior elements are un remarkable. ALIGNMENT: Within normal limits. DISKS: Interverebral disc spaces are maintained. Small endplate osteophytes SOFT TISSUE: Visualized lungs are clear. IMPRESSION: Mild degenerative changes. DATA REPOSITORY: RADIATION DOSE DELIVERED:
== END 2024-07-12 03:19 ==
PROVIDERS: PCP Student in an Organized Health Care Education/Training Program; Visit Provider Student in an Organized Health Care Education/Training Program
DX: M51.34 Other intervertebral disc degeneration, thoracic region (principal); M50.122 Cervical disc disorder at C5-C6 level with radiculopathy
CPT/HCPCS: 72050; 72072

== ENCOUNTER 2024-07-21 14:25 | Emergency (ER) | payer OTHER, SELFPAY ==
[2024-07-21 14:27] VITALS: BP 158/110; PULSE 64; RESP 16; TEMP 36.6; O2SAT 99
--- NOTE | 2024-07-21 14:30 | DI.CT_ITS ---
Exam(s) CT UPPER EXTREMITY LT CTA EXAM: CT UPPER EXTREMITY LT CTA CLINICAL HISTORY: left dorsal hand laceration hematoma TECHNIQUE: Imaging Protocol: Axial computed tomography images with coronal and sagittal reformatted images were created and reviewed. CONTRAST MATERIAL: Intravenous: Omnipaque 350 Contrast volume:100 mL contrast route:IV - COMPARISON: No exams were available for comparison FINDINGS: Left subclavian artery is patent as is the left axillary and left brachial artery. The radial and ul bryan arteries are patent. Distally there is prominent soft tissue density-probable hematoma over the dorsal aspect of the hand with soft tissue arterial blush consistent with extravasation/active bleeding within this hematoma e vident. No subjacent fractures evident. No radiopaque foreign body. IMPRESSION: There is a prominent actively bleeding hematoma over the dorsal aspect of the hand, lateral of center . This is dorso lateral to the base of the 2nd metacarpal. There is prominent soft tissue swelling but there is no radiopaque foreign body. No fracture RADIATION DOSE DELIVERED: 611.42mGy.cm Total DLP DATA REPOSITORY: All CT scans at this facility are submitted to the National Radiology Data Registry (NRDR) Dose Index Registry (DIR) with the [employer] (ACR). RADIATION OPTIMIZATION: All CT scans at this facility use at least one of these dose optimization te chniques: automated exposure control; mA and/or kV adjustment per patient size (includes targeted exa ms where dose is matched to clinical indication); or iterative reconstruction.
--- NOTE | 2024-07-21 14:31 | ED.GENADUL_ITS ---
Discharge Plan Disposition Patient Disposition: Transfer-Acute Inpatient Care Specific Acute Inpt Facility: [facility] Discharge Details Clinical Impression: Hematoma of left hand, Laceration of left hand Primary Care Provider: Margaret Solis ED Provider: Naman Lucio Home Meds and New Rx's Prescriptions: No Action ibuprofen 200 mg tablet 600 mg PO Q6H PRN Excedrin Migraine 250-250-65 mg tablet 2 tab PO ONCE PRN loratadine [Claritin] 10 mg tablet 10 mg PO DAILY PRN (Reason: allergic symptoms) fluticasone propionate [Flonase Allergy Relief] 50 mcg/actuation spray,suspension 1 spray intranasal DAILY PRN Rx Instructions: administer into each nostril epinephrine [EpiPen 2-Jabier] 0.3 mg/0.3 mL auto-injector 0.3 mg IM ONCE Qty: 2 0RF Rx Instructions: as a single dose; may repeat once HPI General Date/Time Provider Initiated Documentation: 07/21/24 14:30 . HPI Narrative: MDM This is an overall well-appearing normothermic and not tachycardic [id number]-xbge-vihvhhcm 53-year-old male with left dorsal hand laceration with significant hematoma and reported pulsatile bleeding concerning for the possibility of arterial injury for which patient will undergo left upper extremity CT angiogram. No active bleeding at this point to suggest benefit from tourniquet placement. Will send type and screen. Will check basic labs and also obtain plain films. Patient's tetanus has been updated less than 5 years ago in 2020. Will provide 2 g of cefazolin. Will touch base with[ ] at [facility] following imaging. Patient is not on any blood thinners to suggest need for reversal. He has intact sensation and motor function in his left hand so not concern for ligamentous injury. 3:37 PM I reassessed patient after CTA. It does appear that there is a small blush in his right hand on CTA. I spoke with Payton Dobbs from the transfer center at [facility]. She will contact me with hand. Patient's x-ray negative for any fractures. Patient having no significant pain and no active bleeding. 4:44PM I spoke to Dr. Gay from plastics at [facility]. She reported that she would be able to see the patient if he arrived to the emergency department. I then spoke with Dr. Enriquez, ED attending, who graciously agreed to accept the patient to the ED. Patient complained of some pain for which she received 0.5 mg hydromorphone. Will send patient via a basic crew. HPI This is a [id number]-[id number] 53-year-old male with history of factor V Leiden not on any blood thinners arrived to the emergency department via private vehicle in the setting of a laceration he sustained to the dorsal surface of his left hand with a knife approximately 30 minutes ago. 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 He noticed after the injury that he had some pulsatile bleeding. He was with a friend who used to work on ambulance. They were able to clean the wound and wrapped it. He immediately developed a significant hematoma just distal to the wound. He denies any other injuries. He is admitted ambulatory since his injury. Exam General: Well-appearing in no acute distress speaking in complete sentences. Head: Normocephalic, atraumatic. Eye: Extraocular eye movements intact. No conjunctival injection. No scleral icterus. Ear, nose, mouth, throat: Grossly normal inspection. Normal voice, handling secretions normally. Neck: Trachea midline. Cardiovascular: Well-perfused distal extremities. Respiratory: Nonlabored respiration. Gastrointestinal: Nondistended abdomen. Musculoskeletal: On the dorsal aspect of the proximal left hand there is a hemostatic approximately 2 cm puncture wound. Just distal to this wound, as shown in the following photographs, there is an approximately 4 x 3 cm hematoma. Patient has intact sensation motor function in his entire left hand across the radial, median, and ulnar nerve distributions. Skin: Normal for age and race, grossly normal temperature and turgor. No acute rash. Neurologic: Alert and appropriate, no apparent acute deficits. GCS 15. Psychiatric: Mood and manner are appropriate. Grooming and personal hygiene are appropriate. Related Data Home Medications ?Medication ?Instructions ?Recorded ?Confirmed hfqjeje-nsvpwnzclxylc-sepesvnj 250 2 tab PO ONCE PRN 10/12/21 07/21/24 mg-250 mg-65 mg tablet (Excedrin Migraine) ibuprofen 200 mg tablet 600 mg PO Q6H PRN 10/12/21 07/21/24 epinephrine 0.3 mg/0.3 mL 0.3 mg (0.3 mL) IM ONCE #2 ea 06/15/22 07/21/24 injection, auto-injector (EpiPen 2-Jabier) fluticasone propionate 50 1 spray intranasal DAILY PRN 07/10/24 07/21/24 mcg/actuation nasal spray,suspension (Flonase Allergy Relief) loratadine 10 mg tablet (Claritin) 10 mg PO DAILY PRN allergic 07/10/24 07/21/24 symptoms Previous Rx's ?Medication ?Instructions ?Recorded epinephrine 0.3 mg/0.3 mL 0.3 mg (0.3 mL) IM ONCE #2 ea 06/15/22 injection, auto-injector (EpiPen 2-Jabier) Allergies Allergy/AdvReac Type Severity Reaction Status Date / Time morphine AdvReac Intermediate Skin Rash Verified 07/21/24 14:29 yellow jacket stings Allergy Intermediate welts and Uncoded 07/21/24 14:29 needed steroids environmental Allergy Mild Hives Uncoded 07/21/24 14:29 General Stated Complaint: Laceration NSIA: 3 Course Vital Signs Vital signs: Vital Signs Temperature 36.6 C 07/21/24 14:27 Pulse 64 07/21/24 14:27 Respiratory Rate 16 07/21/24 14:27 Blood Pressure 158/110 H 07/21/24 14:27 Pulse Oximetry 99 07/21/24 14:27 Temperature 36.6 C 07/21/24 14:27 Temperature Source Oral 07/21/24 14:27 Pulse 64 07/21/24 14:27 Respiratory Rate 16 07/21/24 14:27 Blood Pressure 158/110 H 07/21/24 14:27 Blood Pressure Position Sitting 07/21/24 14:27 Pulse Oximetry 99 07/21/24 14:27 Oxygen Delivery Method Room Air 07/21/24 14:27 Oxygen Flow Rate 0 07/21/24 14:27 Pain Level 3 07/21/24 14:27 Medical Decision Making Quality:SDOH Health Related Social Needs: 2 No Data to Display PFSH All Active Problems (Updated 07/21/24 @ 16:31 by Naman Lucio MD) Laceration of left hand (Acute) Hematoma of left hand (Acute) Non-restorative sleep (Acute) Acute head trauma (Acute) Laceration of scalp (Acute) Acute neck pain (Acute) Cervical strain (Acute) Syncope and collapse (Acute) Family history of prostate cancer in father (Chronic) Likely non-metastatic, diagnosed in his 70s Normal colonoscopy (Acute) Hives (Acute) Bridges hemangioma (Acute) Factor V Leiden (Acute) Snoring (Acute) Restless legs syndrome (Acute) Lateral epicondylitis, left elbow (Acute) 02/09/22 [facility] note Surgical History History of colonoscopy (~06/2022) Hx of sinus surgery 2013 History of vasectomy Family History Mother Breast cancer Maternal Grandfather Cancer esophageal Father Prostate cancer Social History Smoking/Tobacco Use Status: Never Smoking risk assessment performed?: Yes Alcohol Intake: current Alcohol Intake frequency: a few times a month Drug use: Occasionally Substance use type: marijuana Adopted: No Caregiver/Support person: No Foster care: No Household members: friend(s) and other Details: roomates Housing: house Number of Children: 1 number of grandchildren: 0 Communication Needs: None and Corrective Lenses Education Level: college Details: Bachelor's degree Do you need help understanding health information?: Rarely 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 Pets and animals: Yes (1) Pets and animals: dog(s) Sexually active: No Do you think of yourself as: straight/heterosexual Current gender identity: male What is your relationship status?: How often do you talk on the phone with friends or family?: once per week How often do you get together with friends or relatives?: never Do you belong to any clubs or organized social groups?: yes Panel score (0-1 are the most socially isolated patients): 1 What type of physical activity do you participate in: other 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
[2024-07-21 15:00] LABS: Abs Immature Grans 0.01 10^3/uL (0.0-0.06); Absolute Basophil Count 0.06 10^3/uL (0.0-0.2); Absolute Eosinophil Count 0.13 10^3/uL (0.0-0.7); Absolute Lymphocyte Count 1.73 10^3/uL (1.2-3.4); Absolute Monocyte Count 0.42 10^3/uL (0.1-0.8); Absolute Neutrophil Count 2.64 10^3/uL (1.2-6.7); Basophils % 1.2 %; Eosinophils % 2.6 %; HCT 43.3 % (40.0-50.0); HGB 14.2 g/dL (13.5-17.5); Immature Grans % 0.2 %; Lymphocytes % 34.7 %; MCH 30.9 pg (27.0-33.0); MCHC 32.8 % (32.0-36.0); MCV 94 fL (80-95); MPV 9.5 fL (8.0-11.0); Monocytes % 8.4 %; Neutrophils % 52.9 %; Platelet Count 240 10^3/uL (130-400); RBC 4.59 10^6/uL (4.36-5.78); RDW 14.3 % (11.8-14.1); RDW-SD 49.5 fL; WBC 4.99 10^3/uL (4.4-10.8)
[2024-07-21 15:09] LABS: Anion Gap 9.1 mmol/L (3-11); BUN 20 mg/dL (7-18); CO2 25.9 mmol/L (21.0-32.0); Calcium 9.4 mg/dL (8.5-10.1); Chloride 105 mmol/L (98-107); Glucose 80 mg/dL (74-106); Potassium 3.8 mmol/L (3.5-5.1); Sodium 140 mmol/L (136-145)
--- NOTE | 2024-07-21 15:09 | DI.RAD_ITS ---
Exam(s) XR HAND LT COMPLETE EXAM: XR HAND LT COMPLETE CLINICAL HISTORY: left dorsal land laceration. TECHNIQUE: 2D digital imaging was performed. COMPARISON: No exams were available for comparison FINDINGS: 3 views There is swelling of the dorsal aspect of the hand and there also appears to be some swelling in the soft tissues of the thenar eminence between the thumb metacarpal and index metacarpal. There is no r adiopaque foreign body at this level nor elsewhere in the hand and there is no gas in the soft tissue s. There are no fractures. Benign nonexpansile cyst is noted in the distal half of the scaphoid-shantanu icular bone. IMPRESSION: Soft tissue findings as above. No fractures. No radiopaque foreign bodies. DATA REPOSITORY: RADIATION DOSE DELIVERED:
[2024-07-21] MEDS: Omnipaque 350 MG/ML 100 ML BTL IJ (15:13)
[2024-07-21] MEDS: ceFAZolin 2 GM/50 ML BAG IVPB (15:30)
--- NOTE | 2024-07-21 15:40 | DI.VRAD_ITS ---
PROCEDURE INFORMATION: Exam: XR Left Hand Exam date and time: 07/21/2024 3:09 PM Age: 53 years old Clinical indication: Injury or trauma; Other: Left dorsal hand laceration TECHNIQUE: Imaging protocol: Radiologic exam of the left hand. Views: 3 or more views. COMPARISON: CT UPPER EXTREMITY LT CTA 07/21/2024 3:05 PM FINDINGS: Bones/joints: Cystic change noted in the scaphoid bone, presumed subchondral cyst formation. No evidence for fracture. Soft tissues: Normal. IMPRESSION: No evidence for fracture. Dictated and Authenticated by: Sharmaine Arellano MD. Ordering:ANURADHA Florence MD
[2024-07-21 15:46] VITALS: BP 151/105; PULSE 71; TEMP 36
--- NOTE | 2024-07-21 16:22 | NUR.NOTE ---
Nursing Note:This RN assumed care and report from Clark Ovalle RN at this time.
[2024-07-21 16:44] VITALS: BP 149/104; PULSE 69; RESP 18; TEMP 36.6; O2SAT 95
[2024-07-21] MEDS: HYDROmorphone 2 MG/ML SYR 0.5 MG IVP (16:57)
== END 2024-07-21 15:13 | disposition short-term general hospital (02) ==
PROVIDERS: Emergency Provider Emergency Medicine; PCP Student in an Organized Health Care Education/Training Program
DX: S60.222A Contusion of left hand, initial encounter (principal); W26.0XXA Contact with knife, initial encounter; D68.51 Activated protein C resistance
CPT/HCPCS: 73206; 80048; 86850; 86900; 86901; 96365; 96375; 99285; 73130; 85025; J0690; J1170; J3490

== ENCOUNTER 2025-01-12 16:56 | Emergency (ER) | payer OTHER, SELFPAY ==
[2025-01-12 17:15] VITALS: BP 167/107; PULSE 65; RESP 15; TEMP 36.5; O2SAT 98
--- NOTE | 2025-01-12 17:15 | RT.EKG_ITS ---
APPROVED REPORT Exam: Resting ECG Reason for Exam: Palpitations. High blood pressure Patient Location: E HR:58 bpm ECG Measurements Heart Rate 58 AXIS WI 155 P 60 QRSd 96 QRS 20 QT 431 T 52 QTc 423 Conclusion Sinus bradycardia 58 NORMAL AXIS NO STEMI
[2025-01-12] MEDS: Prochlorperazine 10 MG/2 ML VIAL IVP (17:51)
[2025-01-12] MEDS: Dexamethasone 10 MG/ML VIAL IVP (17:52)
[2025-01-12] MEDS: diphenhydrAMINE 50 MG/ML VIAL 12.5 MG IVP (17:54)
[2025-01-12] MEDS: ACETAMINOPHEN 500 MG/50 ML BAG 200 MG IVPB (17:55)
[2025-01-12] MEDS: MAGNESIUM SULFATE 1 GM/100 ML BAG IV_INF (17:57)
[2025-01-12 18:12] LABS: Abs Immature Grans 0.02 10^3/uL (0.0-0.06); Absolute Basophil Count 0.04 10^3/uL (0.0-0.2); Absolute Eosinophil Count 0.03 10^3/uL (0.0-0.7); Absolute Lymphocyte Count 1.34 10^3/uL (1.2-3.4); Absolute Monocyte Count 0.25 10^3/uL (0.1-0.8); Absolute Neutrophil Count 4.75 10^3/uL (1.2-6.7); Basophils % 0.6 %; Eosinophils % 0.5 %; HCT 43.4 % (40.0-50.0); HGB 14.3 g/dL (13.5-17.5); Immature Grans % 0.3 %; Lymphocytes % 20.8 %; MCH 31.1 pg (27.0-33.0); MCHC 32.9 % (32.0-36.0); MCV 94 fL (80-95); MPV 9.3 fL (8.0-11.0); Monocytes % 3.9 %; Neutrophils % 73.9 %; Platelet Count 248 10^3/uL (130-400); RDW-SD 49.1 fL; WBC 6.43 10^3/uL (4.4-10.8)
[2025-01-12 18:27] LABS: ALT 28 U/L (16-63); AST 18 U/L (15-37); Albumin 3.7 g/dL (3.4-5.0); Alkaline Phosphatase 94 U/L (46-116); Anion Gap 7.7 mmol/L (3-11); BUN 12 mg/dL (7-18); Bilirubin, Total 0.54 mg/dL (0.2-1.0); CO2 27.3 mmol/L (21.0-32.0); CREATININE 1.1 mg/dL (0.70-1.30); Calcium 9.3 mg/dL (8.5-10.1); Chloride 102 mmol/L (98-107); Estimated GFR 79.77 (mL/min/1.73m2); Glucose 152 mg/dL (74-106); Potassium 3.5 mmol/L (3.5-5.1); Sodium 137 mmol/L (136-145); Total Protein 7.4 g/dL (6.4-8.2)
[2025-01-12 19:09] VITALS: BP 156/99; PULSE 74; RESP 16; O2SAT 99
[2025-01-12] MEDS: Lisinopril 5 MG TAB PO (19:16)
[2025-01-12] MEDS: Mylanta Suspension 30 ML CUP PO (19:16)
[2025-01-12 19:47] VITALS: BP 164/94; PULSE 74; RESP 15; TEMP 36.7; O2SAT 98
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
== END 2025-01-12 19:48 | disposition home or self-care (01) ==
PROVIDERS: Emergency Provider Physician Assistant; PCP Nurse Practitioner Family
DX: R51.9 Headache, unspecified (principal); R03.0 Elevated blood-pressure reading, without diagnosis of hypertension; R11.0 Nausea
CPT/HCPCS: 80053; 93005; 96365; 96375; 99284; 85025; 93010; J0131; J0780; J1100; J1200; J3475

== ENCOUNTER 2025-01-15 02:43 | Outpatient (CLI) | payer OTHER, SELFPAY ==
[2025-01-15 08:20] LABS: Glucose 95 mg/dL (74-106)
[2025-01-15 08:46] LABS: TSH (W/Ref FT4) 3.11 uIU/mL (0.36-3.74)
[2025-01-15 17:35] LABS: PSA, Screening 0.4 ng/mL (<=3.5)
[2025-01-18 16:41] LABS: Apolipoprotein B, Serum 127 mg/dL; Beta VLDL Cholesterol Not Detected mg/dL (<15); Beta VLDL Triglycerides Not Detected mg/dL (<15); Cholesterol, Total, CDC 257 mg/dL; Chylomicron Cholesterol Not Detected; Chylomicron Triglycerides Not Detected; HDL Cholesterol, CDC 62 mg/dL (>=40); LDL Cholesterol 147 mg/dL; LDL Triglycerides 49 mg/dL (<=50); Lp(a) Cholesterol 23 mg/dL (<5); LpX Not detected; Triglycerides, CDC 124 mg/dL; VLDL Cholesterol 25 mg/dL (<30); VLDL Triglycerides 60 mg/dL (<120)
== END 2025-01-15 02:44 | disposition home or self-care (01) ==
PROVIDERS: PCP Nurse Practitioner Family; Visit Provider Nurse Practitioner Family
DX: Z00.00 Encounter for general adult medical examination without abnormal findings (principal); G47.33 Obstructive sleep apnea (adult) (pediatric); G47.8 Other sleep disorders; G25.81 Restless legs syndrome; Z80.42 Family history of malignant neoplasm of prostate; E78.5 Hyperlipidemia, unspecified
CPT/HCPCS: 36415; 80061; 82947; 84153; 82172; 82664; 84443

== ENCOUNTER 2025-01-28 16:04 | Outpatient (CLI) | payer OTHER, SELFPAY ==
--- NOTE | 2025-01-28 16:24 | DI.RAD_ITS ---
Exam(s) XR HIP LT COMPLETE AP PELVIS EXAM: XR HIP LT COMPLETE AP PELVIS CLINICAL HISTORY: M79.605, M25.562, W19.XXXA, pain s/p fall. TECHNIQUE: 2D digital imaging was performed. COMPARISON: No exams were available for comparison FINDINGS: Two views. There is no evidence of pelvic nor hip fracture. No hip joint space narrowing. Additional frog-late ral view of the left hip reveals no joint space narrowing nor osteophytes nor abnormal calcifications . Sacroiliac joints appear unremarkable. Pelvic bones exhibit normal density. No osseous lesions. IMPRESSION: No significant radiograph findings in the pelvis and hips. DATA REPOSITORY: RADIATION DOSE DELIVERED:
--- NOTE | 2025-01-28 16:24 | DI.RAD_ITS ---
Exam(s) XR KNEE LT 3V AP,LAT,DEMI EXAM: XR KNEE LT 3V AP,LAT,DEMI CLINICAL HISTORY: M79.605, M25.562, W19.XXXA, pain s/p fall. TECHNIQUE: 2D digital imaging was performed. COMPARISON: No exams were available for comparison FINDINGS: 3 views No evidence of fracture nor prominent joint effusion. No degenerative changes evident. Bone density normal. No osseous lesions. IMPRESSION: No acute osseous findings. DATA REPOSITORY: RADIATION DOSE DELIVERED:
--- NOTE | 2025-01-28 17:00 | DI.VRAD_ITS ---
PROCEDURE INFORMATION: Exam: XR Left Hip Exam date and time: 01/28/2025 4:17 PM Age: 54 years old Clinical indication: Other: Pain in left leg TECHNIQUE: Imaging protocol: Radiologic exam of the left hip. Views: 2 or 3 views hip with pelvis when performed. COMPARISON: No relevant prior studies available. FINDINGS: Bones/joints: Unremarkable. No acute fracture. Soft tissues: Unremarkable. IMPRESSION: No acute findings. Dictated and Authenticated by: Valentine Wang MD. Orderin Jl Vazquez MD
--- NOTE | 2025-01-28 17:01 | DI.VRAD_ITS ---
PROCEDURE INFORMATION: Exam: XR Left Knee Exam date and time: 01/28/2025 4:13 PM Age: 54 years old Clinical indication: Other: Pain in left knee TECHNIQUE: Imaging protocol: Radiologic exam of the left knee. Views: 3 views. COMPARISON: No relevant prior studies available. FINDINGS: Bones/joints: Normal. Soft tissues: Normal. IMPRESSION: No acute findings. Dictated and Authenticated by: Valentine Wang MD. Orderin Jl Vazquez MD
== END 2025-01-28 16:24 ==
LOC: DI 16:04
PROVIDERS: PCP Nurse Practitioner Family; Visit Provider Nurse Practitioner
DX: M79.605 Pain in left leg (principal); M25.562 Pain in left knee; W19.XXXA Unspecified fall, initial encounter
CPT/HCPCS: 73562; 73502

== ENCOUNTER 2025-01-29 03:00 | Outpatient (CLI) | payer OTHER, SELFPAY ==
[2025-01-29 08:57] LABS: Anion Gap 10.6 mmol/L (3-11); BUN 17 mg/dL (7-18); CO2 27.4 mmol/L (21.0-32.0); CREATININE 1.2 mg/dL (0.70-1.30); Calcium 9.2 mg/dL (8.5-10.1); Chloride 103 mmol/L (98-107); Estimated GFR 71.86 (mL/min/1.73m2); Glucose 101 mg/dL (74-106); Potassium 4.3 mmol/L (3.5-5.1); Sodium 141 mmol/L (136-145)
== END 2025-01-29 03:01 | disposition home or self-care (01) ==
PROVIDERS: PCP Nurse Practitioner Family; Referring Provider Nurse Practitioner Family; Visit Provider Nurse Practitioner Family
DX: R03.0 Elevated blood-pressure reading, without diagnosis of hypertension (principal); R73.09 Other abnormal glucose
CPT/HCPCS: 36415; 80048; 82947

== ENCOUNTER 2025-03-20 11:59 | Emergency (ER) | payer OTHER, SELFPAY ==
[2025-03-20 12:09] VITALS: BP 179/103; PULSE 62; RESP 20; TEMP 36.2; O2SAT 98
[2025-03-20 12:11] VITALS: BP 179/103; PULSE 62; RESP 20; TEMP 36.2; O2SAT 98
[2025-03-20 13:30] LABS: Lactate 1.7 mmol/L (<or=2.0)
[2025-03-20 13:37] LABS: Abs Immature Grans 0.04 10^3/uL (0.0-0.06); Absolute Basophil Count 0.04 10^3/uL (0.0-0.2); Absolute Lymphocyte Count 0.56 10^3/uL (1.2-3.4); Absolute Monocyte Count 0.23 10^3/uL (0.1-0.8); Absolute Neutrophil Count 8.61 10^3/uL (1.2-6.7); Basophils % 0.4 %; HGB 15.3 g/dL (13.5-17.5); Immature Grans % 0.4 %; Lymphocytes % 5.9 %; MCH 31.1 pg (27.0-33.0); MCHC 32.6 % (32.0-36.0); MCV 96 fL (80-95); MPV 9.4 fL (8.0-11.0); Monocytes % 2.4 %; Neutrophils % 90.9 %; Platelet Count 297 10^3/uL (130-400); RBC 4.92 10^6/uL (4.36-5.78); RDW 13.9 % (11.8-14.1); RDW-SD 49.2 fL; WBC 9.48 10^3/uL (4.4-10.8)
--- NOTE | 2025-03-20 14:00 | DI.CT_ITS ---
Exam(s) CT ABDOMEN PELVIS W EXAM: CT ABDOMEN PELVIS W CLINICAL HISTORY: left sided abdominal pain. TECHNIQUE: Imaging Protocol: Axial computed tomography images with coronal and sagittal reformatted images were created and reviewed CONTRAST MATERIAL: Intravenous: Omnipaque 350 Contrast volume:100 ml Oral: no COMPARISON: CT CT CHEST PE CTA from 05/24/2023 FINDINGS: ABDOMEN and PELVIS: Lung Bases: No acute findings. Tiny hiatal hernia. Liver: Normal density. No suspicious mass. Gallbladder and biliary tract: No radiodense calculus. No wall thickening or pericholecystic fluid. No biliary dilation. Pancreas: Normal density. No abnormal calcifications or inflammatory process. No evidence of mass. Spleen: Normal. Kidneys: Normal size, contour and axis. 7 millimeter stone mid left kidney. Mild left hydronephrosi s secondary to 2 millimeter stone at the ureterovesical junction. Mild perinephric stranding. Mild delay in left nephrogram. No suspicious masses seen. Adrenal glands: No masses seen. Vasculature: Abdominal aorta non-dilated. Soft tissues: Unremarkable. Bladder: No gross wall thickening. No calculi.No focal mass. Bowel: No obstruction. No bowel wall thickening. Peritoneal cavity: No ascites. No focal collection. No mesenteric inflammatory response. No free air . Bones: Unremarkable for age. Reproductive organs: Prostate is slightly enlarged. Lymph nodes: No pathologically enlarged lymph nodes. IMPRESSION:: Mild left hydronephrosis secondary to a 2 millimeter stone at the left the ureterovesic al junction. Additional 7 millimeter stone in the mid left kidney. RADIATION DOSE DELIVERED: 672.06mGy.cm Total DLP DATA REPOSITORY: All CT scans at this facility are submitted to the National Radiology Data Registry (NRDR) Dose Index Registry (DIR) with the [employer] (ACR). RADIATION OPTIMIZATION: All CT scans at this facility use at least one of these dose optimization te chniques: automated exposure control; mA and/or kV adjustment per patient size (includes targeted exa ms where dose is matched to clinical indication); or iterative reconstruction.
[2025-03-20 14:01] LABS: ALT 35 U/L (16-63); AST 26 U/L (15-37); Albumin 4.5 g/dL (3.4-5.0); Alkaline Phosphatase 106 U/L (46-116); Anion Gap 12.5 mmol/L (3-11); BUN 18 mg/dL (7-18); Bilirubin, Total 0.8 mg/dL (0.2-1.0); CO2 24.5 mmol/L (21.0-32.0); CREATININE 1.4 mg/dL (0.70-1.30); Chloride 104 mmol/L (98-107); Estimated GFR 59.73 (mL/min/1.73m2); Glucose 128 mg/dL (74-106); Lipase 27 U/L (<78); Sodium 141 mmol/L (136-145); Total Protein 8.7 g/dL (6.4-8.2)
[2025-03-20] MEDS: Ketorolac 15 MG/ML VIAL IVP (14:47)
[2025-03-20] MEDS: ACETAMINOPHEN 1,000 MG/100 ML BTL 400 MG IVPB (14:47)
[2025-03-20] MEDS: Ondansetron 4 MG/2 ML VIAL IVP (14:48)
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
[2025-03-20] MEDS: Normal Saline - Diluent 50 ML VIAL IJ (15:22)
[2025-03-20] MEDS: Omnipaque 350 MG/ML 100 ML BTL IJ (15:23)
[2025-03-20] MEDS: Metoclopramide 10 MG/2 ML VIAL IVP (15:39)
[2025-03-20] MEDS: Tamsulosin 0.4 MG CAPCR 0.8 MG PO (15:39)
[2025-03-20 16:51] LABS: Bilirubin Negative (Negative); Blood Large (Negative); Clarity Clear (Clear); Glucose Negative (Negative); Ketones 40 mg/dL (Negative); Leukocyte Esterase Negative (Negative); Nitrite Negative (Negative); Specific Gravity 1.015 (1.005-1.025); Urobilinogen 0.2 mg/dL (Up to 0.2)
[2025-03-20 17:00] LABS: Bacteria Few HPF (Negative); C & S Indicated? No; Casts Negative LPF (Negative); Crystals Negative HPF (Negative); Epithelial Cells Few HPF (Negative); Mucus Trace (Negative); RBC >50 HPF (0-2); WBC 0-2 HPF (0-5)
[2025-03-20 17:30] VITALS: BP 126/89; PULSE 86; RESP 16; TEMP 36.8; O2SAT 99
--- NOTE | 2025-03-21 10:26 | NUR.NOTE ---
Nursing Note:Pt called stating that he is in a lot of pain and the toradol is only working for a few hours. He wanted to know if he could increase the frequency that he is taking this medication. I told him no. He should only take this med as prescribed. He was instructed to supplement with 1000 mg of Tylenol. I asked if he was doing that. He told me no. I instructed him to start taking 1000 mg of Tylenol every 6 hours and then can do the toradol every 8. I also told him that if this just is not working then he can always come back and a provider would be happy to see him again. He asked if coming back would guarantee a med change and I told him no. That he is on the typical medication regimen for kidney stones but I couldn't say that they definitely wouldn't prescribe anything stronger. It is really provider specific and what they feel is adequate. He said that he is going to try the tylenol every 6 hours for a bit and see if that helps. If it doesn't then he is likely going to return to the ED.
== END 2025-03-20 17:35 | disposition home or self-care (01) ==
PROVIDERS: Emergency Provider Student in an Organized Health Care Education/Training Program; PCP Nurse Practitioner Family
DX: N20.0 Calculus of kidney (principal); R10.32 Left lower quadrant pain; I10 Essential (primary) hypertension; R11.2 Nausea with vomiting, unspecified
CPT/HCPCS: 99284; 99285; 96374; 96375; 80053; 83690; 74177; 81003; 81015; 83605; 85025; J0131; J1885; J2405; J2765; J3490

== ENCOUNTER 2025-03-21 11:25 | Emergency (ER) | payer OTHER, SELFPAY ==
[2025-03-21 11:30] VITALS: BP 148/95; PULSE 76; RESP 16; TEMP 37.1; O2SAT 98
[2025-03-21 11:32] VITALS: BP 148/95; PULSE 76; RESP 16; TEMP 37.1; O2SAT 98
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
[2025-03-21] MEDS: Ketorolac 30 MG/ML VIAL IM (12:52)
[2025-03-21] MEDS: oxyCODONE 5 MG TAB PO (12:59)
[2025-03-21 14:06] VITALS: BP 121/84; PULSE 87; RESP 18; TEMP 37.2; O2SAT 95
== END 2025-03-21 14:10 | disposition home or self-care (01) ==
PROVIDERS: Emergency Provider Nurse Practitioner Family; PCP Nurse Practitioner Family
DX: N20.0 Calculus of kidney (principal); I10 Essential (primary) hypertension
CPT/HCPCS: 96372; 99284; 99283; J1885

== ENCOUNTER 2025-03-23 01:30 | Outpatient (REF) | payer OTHER, SELFPAY ==
[2025-03-29 14:19] LABS: Source: Passed Stone
== END 2025-03-23 01:31 | disposition home or self-care (01) ==
LOC: LBN 01:30
PROVIDERS: PCP Nurse Practitioner Family; Visit Provider Nurse Practitioner Family
DX: N20.0 Calculus of kidney (principal)
CPT/HCPCS: 82365

== ENCOUNTER 2025-08-21 04:06 | Outpatient (CLI) | payer OTHER, SELFPAY ==
[2025-08-21 08:50] LABS: Hemoglobin A1C 5.6 % (<5.7)
[2025-08-27 14:25] LABS: Apolipoprotein B, Serum 101 mg/dL; Beta VLDL Cholesterol Not Detected mg/dL (<15); Beta VLDL Triglycerides Not Detected mg/dL (<15); Cholesterol, Total, CDC 210 mg/dL; Chylomicron Cholesterol Not Detected; Chylomicron Triglycerides Not Detected; HDL Cholesterol, CDC 56 mg/dL (>=40); LpX Not detected; Triglycerides, CDC 74 mg/dL; VLDL Triglycerides 24 mg/dL (<120)
== END 2025-08-21 04:07 | disposition home or self-care (01) ==
PROVIDERS: PCP Nurse Practitioner Family; Referring Provider Nurse Practitioner Family; Visit Provider Nurse Practitioner Family
DX: R73.09 Other abnormal glucose (principal); E66.811 Obesity, class 1; Z51.81 Encounter for therapeutic drug level monitoring; E78.00 Pure hypercholesterolemia, unspecified; E78.41 Elevated Lipoprotein(a)
CPT/HCPCS: 36415; 80061; 83695; 82172; 82664; 83036